=== PATIENT | female | born 2000 | race Caucasian/White ===

== ENCOUNTER 2024-12-15 16:02 | Inpatient (IN) | payer OTHER, SELFPAY ==
[2024-12-15] VITALS (34 sets, daily range): BP systolic 120–158; BP diastolic 68–109; PULSE 76–107; TEMP 36.2–36.8; O2SAT 97–100; BMI 43.7
--- OUTSIDE RECORDS SUMMARY | 2024-12-15 16:30 | XMS_ITS | Clinical Summary ---
Author Organization [facility] [employer] Address [address] [place] [address] Care Team Providers Care Grip Wrapper Name Role Phone Ivy Salas COMMUNITY MENTAL HEALTH WORKER-BILLING SUPERVISOR Primary Care Provider [phone] Source Comments [facility] [employer],non-owned Affiliates and Associated Physician Practices is amultiple site organization consisting of ambulatory clinics and hospital sitesin [place], [place], [place] and [place]. This disclosure is being madepursuant to the Care Everywhere program and may not contain all information available regarding this patient. Last updated 18.[facility] [employer] Allergies No known active allergies Medications * Be aware that medications may not be up to date on this document. Alwaysverify current medications with the patient. Medication Sig Dispensed Refills Start Date End Date Status Rtgctnha-IrGui-LT-DHA w/o A ( + DHA PO) Active aspirin (Aspirin) 81 MG chew tablet Take 1 (one) tablet by mouth once daily Active cetirizine (ZyrTEC) 10 MG chew tablet Take 1 (one) tablet by mouth once daily Active Social History Tobacco Use Types Packs/Day Years Used Date Smoking Tobacco: Never Smokeless Tobacco: Never Tobacco Cessation:Counseling Given: Not Answered Alcohol Use Standard Drinks/Week Comments Never 0 (1 standard drink = 0.6 oz pur e alcohol) PHQ-2 Answer Date Recorded Patient Health Questionnaire-2 Score 0 08/22/2024 Estimated Date of Delivery Comme nts Yes 12/16/2024 Sex and Gender Information Value Date Recorded Sex Assigned at Not on file Gender Identity Not on file Sexual Orientation Not on file Last Filed Vital Signs Vital Sign Reading Time Taken Comments Blood Pressure 131/64 08/22/2024 5:09 PM DIRECTOR OF FIRST IMPRESSIONS Pulse 79 08/22/2024 5:09 PM [employer]OR OF [employer]PRESS[employer] Temperature 36.7 C (98 F) 08/22/2024 5:09 PM [employer]OR OF [employer]PRESS[employer] Respiratory Rate 18 08/22/2024 5:09 PM [employer]OR OF [employer]PRESS[employer] Oxygen Saturation 100% 08/22/2024 5:09 PM [employer]OR OF [employer]PRESS[employer] Inhaled Oxygen Concentration - - Weight 108.9 kg (240 lb) 08/22/2024 5:09 PM [employer]PRESS[employer] Height 167.6 cm (5' 6 ) 08/22/2024 5:09 PM [employer]OR OF [employer]PRESS[employer] Body Mass Index 38.74 08/22/2024 5:09 PM DIRECTOR OF FIRST IMPRESS[employer] Plan of Treatment Health Maintenance Due Date Last Done Comments PAP SMEAR 1999 HPV VACCINE (1 - 3-dose series) 2014 CHLAMYDIA/GONORRHEA SCREENING 2015 HEPATITIS C SCREENING 04/14/2017 DTAP/TDAP/TD VACCINES (1 - Tdap) 2018 HEPATITIS B VACCINE (1 of 3 - 19+ 3-dose series) 2018 COVID-19 VACCINE (2 - 2023-2 5 season) 2024 02/28/2021 INFLUENZA VACCINE (#1) 2024 06/25/2019 OB-ONE HOUR GLUCOSE 09/09/2024 OB-TDAP CURRENT 09/16/2024 DEPRESSION SCREENING 09/21/2024 08/22/2024 OB-RHOGAM INJECTION 09/23/2024 OB-GROUP B STREP SCREEN 11/11/2024 ZOSTER VACCINE (1 of 2) 2049 HIV SCREENING Completed 06/10/2024 HIB VACCINE Aged Out No longer eligi ble based on patient's age to complete this topic MENINGOCOCCAL (Group B) VACC INE SHARED DECISION-MAKING Aged Out No longer eligibl e based on patient's age to complete this topic MENINGOCOCCAL GROUPS A/C/Y/W VACCINE Aged Out No longer eligible b ased on patient's age to complete this topic PNEUMOCOCCAL VACCINE Aged Out No long er eligible based on patient's age to complete this topic Respiratory Syncytial Virus (RSV) Vaccine Pt: or over 60 yrs (No Doses Required) Completed Care Teams Grip Wrapper Relationship Specialty Start Date End Date Ivy Salas, COMMUNITY MENTAL HEALTH WORKER-BILLING SUPERVISOR [address] [place] [phone] PCP - General Nurse Practitioner 08/22/24
--- OUTSIDE RECORDS SUMMARY | 2024-12-15 16:30 | XMS_ITS | Continuity of Care Document ---
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 Plan of Treatment Reminders Order Date Submit Date Provider Last Modified By Organization Details Last Modified Time Details Appointments INDUCTION 2024 04:00P M Lori Hogan CNM Not available Not available Not available Lab None recorded. Referral None recorded. Procedures None recorded. Surgeries None recorded. Imaging US, obstetric , biophysic al profile + non-stres s test 2024 025 [email or web address] [place], [address], [place], [address], 12/14/2024 19:02:19 Medication Orders None recorded. Patient TargetsNo targets recorded. Patient InstructionsNo instructions recorded. Reason for Referral None Reported. Results Created Date Observation Date Name Description Value Unit Range Abnormal Flag Note LastModifiedBy Organization Detail LastModifiedTime 07/27/20 24 07/27/2024 US, obste tric, 2nd or 3rd trime ster No observ ation record ed. [email or web address] [place] [address], [place], [address], 07/27/2024 17:45:29 07/27/20 24 07/27/2024 US, obste tric, 2nd or 3rd trime ster No observ ation record ed. [email or web address] [address], [place], [address], 07/27/2024 21:33:42 10/12/19 25 10/12/2024 US, obste tric, follo w-up No observ ation record ed. [email or web address] [place] [address], [place], [address], 10/12/2024 13:51:30 10/12/19 25 10/12/2024 US, obste tric, follo w-up No observ ation record ed. [email or web address] [address], [place], [address], 10/13/2024 18:35:26 11/11/19 25 11/11/2024 US, obste tric, follo w-up No observ ation record ed. [address], [place], [address], 11/15/2024 23:11:50 11/11/19 25 11/11/2024 US, obste tric, follo w-up No observ ation record ed. [email or web address] [address], [place], [address], 11/11/2024 17:56:31 11/24/19 25 11/23/2024 US, obste tric, bioph ysica l profi le + non-s tress test No observ ation record ed. [email or web address] [place] [address], [place], [address], 11/23/2024 18:47:09 11/24/19 25 11/23/2024 US, obste tric, bioph ysica l profi le + non-s tress test No observ ation record ed. [email or web address] [address], [place], [address], 11/23/2024 20:42:37 11/25/19 25 11/24/2024 non-s tress test No observ ation record ed. [email or web address] [place] [address], [place], [address], 11/24/2024 09:51:27 12/01/19 25 11/30/2024 non-s tress test No observ ation record ed. [email or web address] [place] [address], [place], [address], 11/30/2024 17:15:41 12/01/19 25 11/30/2024 US, obste tric, bioph ysica l profi le + non-s tress test No observ ation record ed. [email or web address] [place] [address], [place], [address], 11/30/2024 17:58:51 12/01/19 25 11/30/2024 US, obste tric, bioph ysica l profi le + non-s tress test No observ ation record ed. [email or web address] [address], [place], [address], 11/30/2024 18:36:20 12/03/19 US, obste tric, bioph ysica l profi le + non-s tress test No observ ation record ed. [email or web address] [place] [address], [place], [address], 12/02/2024 16:53:35 12/08/19 25 12/07/2024 US, obste tric, follo w-up No observ ation record ed. [email or web address] [address], [place], [address], 12/09/2024 16:58:31 12/08/19 25 12/08/2024 US, obste tric, follo w-up No observ ation record ed. [email or web address] [place] [address], [place], [address], 12/08/2024 13:56:01 12/08/19 25 12/08/2024 US, obste tric, bioph ysica l profi le + non-s tress test No observ ation record ed. [email or web address] [place] [address], [place], [address], 12/08/2024 13:56:13 12/08/19 25 12/07/2024 non-s tress test No observ ation record ed. [email or web address] [place] [address], [place], [address], 12/07/2024 20:10:22 12/08/19 25 12/07/2024 non-s tress test No observ ation record ed. [email or web address] [place] [address], [place], [address], 12/07/2024 20:12:09 12/15/19 25 12/14/2024 US, obste tric, bioph ysica l profi le + non-s tress test No observ ation record ed. [email or web address] [place] [address], [place], [address], 12/14/2024 18:23:21 12/15/19 25 12/14/2024 US, obste tric, follo w-up No observ ation record ed. [email or web address] [address] [facility], [place], [address], 12/15/2024 16:09:35 12/15/19 25 12/14/2024 non-s tress test No observ ation record ed. [email or web address] [place] [address], [place], [address], 12/14/2024 19:28:04 12/15/19 non-s tress test No observ ation record ed. [email or web address] [place] [address], [place], [address], 12/14/2024 19:30:58 Result Notes None recorded. Problems Name Problem SNOMED Code Status Onset Date Resolution Date Notes Provider Name and Address Organization Details Recorded Time 62230845 Active 2023 Isabella West null, [facility] 4 17:02:18 Obesity 926130050 Active BMI 39- plan testing start Troy Hogan CNM [address], [place], [address], [facility] 4 17:11:03 Cystic fibrosis 484207093 Active + Carrier - Low risk to fetus Sheila Alex [facility], [facility] 4 16:57:53 Cystic fibrosis 044938162 Active + Carrier - Low risk to fetus Sheila Alex null, [facility] 4 16:57:53 Problem Notes None recorded. Procedures Surgical History Date Name Laterality Status Provider Name and Address Organization Details Recorded Time 05/11/20 24 Date of Last Pap Smear completed Isabella West [facility] 06/10/2024 14:48:49 12/17/19 24 IUD Removal completed NELY Cadet [address], [place], [address], [facility] 12/17/2023 17:32:17 12/12/19 22 IUD Insertion completed Lori Hogan CNM [address], [place], [address], [facility] 12/11/2021 18:48:33 09/21/19 17 extraction of wisdom tooth completed Isabella West [facility] 12/09/2021 14:25:26 Imaging Results Imaging Date Name Status LastModified by Organiz ation Details LastModified Time 12/14/2024 US, obstetric, biophysical profile + non-stress test completed [email or web address] [place] [address], [place], [address], 12/14/2024 18:23:21 Procedure Notes None recorded. Medical Equipment None Reported. Allergies No known drug allergies Medications Name Sig Start Date Stop Date Status Note LastModified by Organization Details LastModified Time amoxicill in 500 mg capsule TAKE 1 CAPSULE BY MOUTH 3 TIMES A DAY UNTIL GONE 12/11 completed Not Available Not Available Not Available Mirena 21 mcg/24 hr (up to 8 years) 52 mg intrauter ine device Take 1 device by intraute rine route. 12/16 completed MIRENA IUD INSERTED 2 AND NEEDS REMOVED 9 LOT [id number] EXP 12/2023 Not Available Not Available Not Available ibuprofen 800 mg tablet TAKE 1 TABLET BY MOUTH EVERY 6 HOURS NEEDED FOR PAIN 12/11 completed Not Available Not Available Not Available meloxicam 15 mg tablet TAKE 1 TABLET (15 MG TOTAL) BY MOUTH DAILY. 06/10 completed Not Available Not Available Not Available Zyrtec 10 mg tablet 1 tablet every day by oral route. active Not Available Not Available No t Available acetamino phen 300 mg-codein e 30 mg tablet TAKE 1 TABLET BY MOUTH EVERY 6 HOURS NEEDED FOR PAIN 12/11 completed Not Available Not Available Not Available fexofenad ine 180 mg tablet TAKE 1 TABLET (180 MG TOTAL) BY MOUTH DAILY NEEDED (ALLERGI ES) 01/20 completed Not Available Not Available Not Available montel[address] st 10 mg tablet TAKE 1 TABLET BY MOUTH EVERY DAY AT NIGHT 01/20 completed Not Available Not Available Not Available fluticaso ne propionat e 50 mcg/actua tion nasal spray,ebenezer pension SPRAYS 2 SPRAY IN EACH NOSTRIL ONCE A DAY 01/20 completed Not Available Not Available Not Available Vitamin D3 25 mcg (1,000 unit) capsule 2 capsules every day by oral route. active Not Available Not Available No t Available norgestim ate-ethin yl estradiol 12/11 completed Not Available Not Available Not Available Vitamin 06/10 completed Not Available Not Available Not Available + DHA active Not Available Not Available Not Available Tri Femynor (28) 0.18 mg(7)/0.2 15 mg(7)/0.2 5 mg(7)-35 mcg tablet TAKE 1 TABLET BY MOUTH EVERY DAY 12/11 completed Not Available Not Available Not Available Vitals Date Recorded Body weight Body mass index (BMI) Body height Body height Body mass index (BMI) Body weight Systolic blood pressure Diastolic blood pressure Systolic blood pressure Diastolic blood pressure Provider Name and Address Organization Details Last Updated DateTime 5 089218. 69494 g 44.8 kg/m2 165.1 cm 165.1 cm 44.8 kg/m2 733403. 35 g 140 mm[Hg] 89 mm[Hg] 140 mm[Hg] 89 mm[Hg] Isabella West [facility] 5 19:22:36 Social History Question Answer Notes LastModified by Organizat ion Details LastModified Time Tobacco Smoking Status Never Smoker Deepak schwartz, [facility] 01/20/2022 17:23:59 Do You Have An Advance Directive? No [email or web address] Information n ot available 12/04/2021 What Is Your Level Of Alcohol Consumption? None [email or web address] Information not available 05/11/2024 If You Are , What Was Your Level Of Alcohol Consumption Prior To ? Occasional [email or web address] Information not available 05/11/2024 How Many Years Have You Consumed Alcohol? 1 Information not available 12/17/2023 Are You Blind Or Do You Have Difficulty Seeing? No [email or web address] Information n ot available 12/04/2021 What Is Your Level Of Caffeine Consumption? Moderate Information not available 12/17/2023 How Much Tobacco Do You Chew? None [email or web address] Information not available 12/04/2021 In The 14 Days Before Symptom Onset, Have You Had Close Contact With A Laboratory-confirm ed COVID-19 While That Case Was Ill? No [email or web address] Information n ot available 12/04/2021 In The 14 Days Before Symptom Onset, Have You Had Close Contact With A Person Who Is Under Investigation For COVID-19 While That Person Was Ill? No [email or web address] Information not available 12/04/2021 Have You Been To An Area Known To Be High Risk For COVID-19? No [email or web address] Information not available 12/04/2021 Are You Deaf Or Do You Have Serious Difficulty Hearing? No [email or web address] Information not available 12/04/2021 What Type Of Diet Are You Following? REGULAR [email or web address] Information n ot available 12/04/2021 What Is The Highest Grade Or Level Of School You Have Completed Or The Highest Degree You Have Received? 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 No Information not available 12/17/2023 Have You Ever Been Counseled For Unhealthy Alcohol Use? No Information not available 01/20/2022 Do You Use Protection During Sex? No Information not available 12/04/2021 Do You Use Your Seat Belt Or Car Seat Routinely? Yes [email or web address] Information not available 12/04/2021 Do You Have Smoke And Carbon Monoxide Detectors In Your Home? Yes [email or web address] Information not available 12/04/2021 How Much Tobacco Do You Smoke? No [email or web address] Information not available 12/04/2021 Do You Feel Stressed (tense, Restless, Nervous, Or Anxious, Or Unable To Sleep At Night)? [id number] [email or web address] Information not available 12/04/2021 Do You Use Any Illicit Or Recreational Drugs? No [email or web address] Information not available 12/04/2021 Do You Use Sunscreen Routinely? Yes [email or web address] Information not available 12/04/2021 Has Tobacco Cessation Counseling Been Provided? No [email or web address] Information not available 01/20/2022 Have You Used IV Drugs? No [email or web address] Information not available 12/04/2021 Do You Or Have You Ever Used Any Other Forms Of Tobacco Or Nicotine? No [email or web address] Information not available 01/20/2022 Sex: Unknown Functional Status Question Answer Note LastModified by Organizat ion Details LastModified Time Do you have difficulty walking or climbing stairs? No Information not available 01/20/2022 Are you able to walk? YESWOREST [email or web address] Information not available 12/04/2021 Are you able to care for yourself? Yes Information not available 01/20/2022 Do you have difficulty dressing or bathing? No Information not available 01/20/2022 What is your exercise level? Occasional Information not available 12/17/2023 Mental Status None recorded. Family History Relationship Description Onset Age of this Age Resolved Age Notes LastModified by Organization Details LastModified Time Maternal Grandmother Hypertensive disorder [email or web address] Not available 12/04 18:21:26 Maternal Grandmother Diabetes mellitus [email or web address] Not available 12/04 18:21:26 Maternal Grandmother Malignant tumor of ovary 20 [email or web address] Not available 2023 16:41:30 Maternal Grandmother Malignant tumor of ovary Not available 2023 16:53:09 Mother Hypertensive disorder Not available 12/04 18:21:26 Brother Asthma [email or web address] Not availabl e 12/04/2021 18:21:26 Maternal Aunt Hypertensive disorder [email or web address] Not available 2021 17:56:25 Maternal Uncle Hypertensive disorder [email or web address] Not available 2021 17:56:26 Unspecified Relation Diabetes mellitus MATERN AL GREAT GRANDM A [email or web address] Not available 12/11/2021 17:56:26 Paternal Uncle Malignant tumor of pancreas 40 [email or web address] Not available 2024 14:23:32 Medical History Condition Response Allergies (Food, seasonal, environmental ) Y Other N Breast Cancer N Drug/Latex Allergies/Reactions N Blood Transfusion N Dermatologic Disorders N Lung Disease N Defects or Inherited Disease N Breast Problem N Gestational Diabetes N Hematologic disorders N Anesthesia Complications N History of STI N Deep Vein Thrombosis N Polycystic ovary syndrome N Anxiety Disorder N Autoimmune disease N Arthritis N Infertility N Polyps N Acid Reflux (GERD) N History of abnormal pap N Cancer N Stroke N Varicosities N Neurologic/Epilepsy N Endometriosis N High Cholesterol N Headaches N Fibromyalgia N Kidney Disease N Heart Problems N Kidney or Bladder Problems N Thyroid Problems N GI Problems Y Eating Disorder N Anemia N Art (IVF or FET) N Psychiatric Illness N Ovarian Cancer N Diabetes N Pulmonary (TB, Asthma) N Hepatitis/Liver Disease N No Past Medical History N Eczema N Urinary Tract Infection N Abuse/Domestic Violence N Asthma Y Trauma/Violence N Depression/ depression N Heart Disease N Pre-Eclampsia N Hypertension N Osteoporosis N Thrombophilias N Gynecological History Statement/Question Response Abnormal Pap N Date of Last Mammogram Date of LMP 03/11/2024 On BCP's at Conception? N N Was last menstrual period normal Y STIs/STDs N HPV Vaccine Y Duration of Flow (days) 1 Current Control Method Frequency of Cycle (Q days) 21 Most Recent Bone Density Sexually Active? Y Seeking Age of first menstrual cycle 10 Date of Last Pap Smear 05/11/2024 Sexual Problems? N LMP Approximate N Obstetrics History GPAL:G 1 P 0 0 0 0 Type Value Living 0 Total 1 Past Encounters Encounter ID Performer Location Encounter Start Date Encounter Closed Date Diagnosis/Indication Diagnosis SNOMED-CT Code Diagnosis ICD10 Code Diagnosis Note [id number] Lori Hogan [facility] [address] [address] 11/16/2024 17:28:33 11/17/2024 04:35:14 screening 849884027 Z36.85 Gestation period, 35 weeks 49559926 Z3A.35 [id number] Naila Juarez [place] [address],[place] [address] 11/23/2024 15:54:02 11/23/2024 16:33:33 Maternal obesity complicating , childbirth and the puerperium, antepartum 6150959282 07 O99.213 Z3A.36 [id number] Loren Rivera [place] [address] [place] [address] 11/23/2024 15:54:37 11/24/2024 11:16:36 Maternal obesity complicating , childbirth and the puerperium, antepartum 9037382656 07 O99.213 Z3A.36 [id number] [facility] [address] [place] [address] 11/23/2024 15:55:14 11/23/2024 17:36:49 Gestation period, 36 weeks 53926428 Z3A.36 [id number] Keira Davies [place] [address],[place] [address] 11/30/2024 16:24:27 11/30/2024 17:19:10 06000900 Z33.1 Maternal o besity complicating , childbirth and the puerperium, antepartum 1021440063 07 O99.210 [id number] [facility] [address],[place] [address] 11/30/2024 16:24:49 11/30/2024 17:26:02 Maternal obesity complicating , childbirth and the puerperium, antepartum 8546986028 07 O99.213 Z3A.37 [id number] Lori Hogan [facility] [address],[place] [address] 11/30/2024 16:25:23 11/30/2024 17:48:29 Gestation period, 37 weeks 64744796 Z3A.37 [id number] [facility] [address],[place] [address] 12/07/2024 17:04:19 12/08/2024 10:03:10 Maternal obesity complicating , childbirth and the puerperium, antepartum 2800808573 07 O99.213 Z86.16 [id number] Isabella West [place] [address] [address] 12/07/2024 17:04:34 12/08/2024 08:27:45 Maternal obesity complicating , childbirth and the puerperium, antepartum 8534062908 07 O99.210 [id number] Lori Hogan [facility] [address],[place] [address] 12/07/2024 17:05:53 12/08/2024 03:57:01 Gestation period, 38 weeks 21052215 Z3A.38 [id number] [facility] [address],[place] [address] 12/14/2024 16:33:00 12/14/2024 17:02:46 Maternal obesity complicating , childbirth and the puerperium, antepartum 2846242562 07 O99.213 Z3A.39 [id number] Isabella West [place] [address],[place] [address] 12/14/2024 16:33:24 12/15/2024 13:13:18 Maternal obesity complicating , childbirth and the puerperium, antepartum 8095884710 07 O99.210 [id number] [facility] [address],[place] [address] 12/14/2024 16:33:36 12/15/2024 03:27:29 Gestation period, 39 weeks 63659836 Z3A.39 Health Concerns Section Related Observation LastModified by Organization Detai ls LastModified Time None Recorded Concern Status LastModified by Organization Details LastModified Time None Recorded Payers Encounter Date Sequence Insurance Name Policy Number Policy Wilson Covered Member ID Wilson Member ID Guarantor Name 12/14/2024 2 [facility] [id number] Gurmeet Ortega [id number] Mary Garnica 12/14/2024 1 [facility] [id number] Mary Garnica [id number] Mary Garnica OBGyn Episode Ob Episode Information Episode Created Date Number of Fetuses Patient Bloodtype Patient rh Status Prepregnancy Weight lbs Domestic Partner Domestic Partner Phone Father Name Supervisor Travel Trailer Status 06/10/20 24 1 A Positive 236 OPEN Fetus Data First Name Last Name Admitted to NICU Weight (g) Sex Living Outcome Pediatric Complications Fetus ID Race Codes Race Delivery Type [id number] Problems Problem Notes Problem Name Start Date End Date Resolution Snomed Code Not e Cystic fibrosis 252755403 + Ca rrier - Low risk to fetus Obesity 583415719 BMI 39- pl an testingstart bASA Bimal Calculation Initial Bimal Date Initial Exam Date Initial Exam Provider Initial Ultrasound Date Last Menstrual Period Date Ultra Sound Weeks Gestation 12/16/2024 05/11/2024 Lori Hogan 05/11/2024 03/11/2024 9 Eighteen To Twenty Week Bimal Update Ultra Sound Date Fundal Height At Umbil Quickening Date Ultra Sound Latest Weeks Gestation Final Bimal Confirmed By Final Bimal Confirmed Date Final Bimal Date Ultra Sound Latest Days Gestation 0 0 Pre- Flowsheet Flowsheet Date 06/10/2024 Martini Score Blood Edema Fundus Height Fundus Units Glucose Ketones Leukocytes Nitrite Labor Signs Protein Cervic Dilation Cervic Effacement Cervic Station Type Weight in lbs Pre/Post Dialysis Refused Weight 237.2660677847 BP Diastolic BP Location Tested BP Systolic BP Type 96 161 82 131 Fetus Heart Rate Present Fetus Movement Comments discussed bp a little high, first baby will plan daily bASA. start routine care, labs today and reviewed us wnl Flowsheet Date 07/08/2024 Martini Score Blood Edema Fundus Height Fundus Units Glucose Ketones Leukocytes Nitrite Labor Signs Protein Cervic Dilation Cervic Effacement Cervic Station none Type Weight in lbs Pre/Post Dialysis Refused 236.643430218073 BP Diastolic BP Location Tested BP Systolic BP Type 84 142 Fetus Heart Rate Present Fetus Movement A Yes Comments +FM, has anatomy scan in 3 w eeks, some nausea, samson resolved, reviewed vaccines, education and precautions Flowsheet Date 07/27/2024 Martini Score Blood Edema Fundus Height Fundus Units Glucose Ketones Leukocytes Nitrite Labor Signs Protein Cervic Dilation Cervic Effacement Cervic Station Type Weight in lbs Pre/Post Dialysis Refused BP Diastolic BP Location Tested BP Systolic BP Type Fetus Heart Rate Present Fetus Movement Comments Flowsheet Date 07/27/2024 Martini Score Blood Edema Fundus Height Fundus Units Glucose Ketones Leukocytes Nitrite Labor Signs Protein Cervic Dilation Cervic Effacement Cervic Station Type Weight in lbs Pre/Post Dialysis Refused 239.150655028861 BP Diastolic BP Location Tested BP Systolic BP Type 83 129 Fetus Heart Rate Present Fetus Movement A Yes Comments Patient is having some cramp ing, nausea and vomiting. anatomy complete doing well ok for tdap and flu f/u 4 weeks, precautions and education Flowsheet Date 08/24/2024 Martini Score Blood Edema Fundus Height Fundus Units Glucose Ketones Leukocytes Nitrite Labor Signs Protein Cervic Dilation Cervic Effacement Cervic Station none Type Weight in lbs Pre/Post Dialysis Refused 244.159252272526 BP Diastolic BP Location Tested BP Systolic BP Type 83 133 Fetus Heart Rate Present Fetus Movement A Yes Comments Patient had bladder pain on thursday and was tested for UTI and was negative. sxs resolved after baby repositioned. +FM doing well, Education and precautions f/u4 weeks with gct Flowsheet Date 09/28/2024 Martini Score Blood Edema Fundus Height Fundus Units Glucose Ketones Leukocytes Nitrite Labor Signs Protein Cervic Dilation Cervic Effacement Cervic Station none Type Weight in lbs Pre/Post Dialysis Refused 250.627760131353 BP Diastolic BP Location Tested BP Systolic BP Type 84 131 Fetus Heart Rate Present A 145 Present Fetus Movement A Yes Comments Patient states that had covi d couple weeks ago. start bASA q 4 week US, gct today +FM, f/u 4 weeks with us Flowsheet Date 10/12/2024 Martini Score Blood Edema Fundus Height Fundus Units Glucose Ketones Leukocytes Nitrite Labor Signs Protein Cervic Dilation Cervic Effacement Cervic Station Type Weight in lbs Pre/Post Dialysis Refused BP Diastolic BP Location Tested BP Systolic BP Type Fetus Heart Rate Present Fetus Movement Comments Flowsheet Date 10/12/2024 Martini Score Blood Edema Fundus Height Fundus Units Glucose Ketones Leukocytes Nitrite Labor Signs Protein Cervic Dilation Cervic Effacement Cervic Station neg none Type Weight in lbs Pre/Post Dialysis Refused 252.384348711868 BP Diastolic BP Location Tested BP Systolic BP Type 86 133 Fetus Heart Rate Present Fetus Movement A Yes Comments Patient is having back and h ip pain, nausea and vomiting. will get maternity support belt, +FM, efw 45%, precautions and education, looking for a it associate, signed up for class f/u 2 weeks Flowsheet Date 10/28/2024 Martini Score Blood Edema Fundus Height Fundus Units Glucose Ketones Leukocytes Nitrite Labor Signs Protein Cervic Dilation Cervic Effacement Cervic Station neg none 35 cm Type Weight in lbs Pre/Post Dialysis Refused Weight 258.074130768862 BP Diastolic BP Location Tested BP Systolic BP Type 80 125 Fetus Heart Rate Present A 147 Present Fetus Movement A Yes Comments Patient is having some cramp ing, nausea and vomiting. precautions and education, flu and covid vaccine done, +FM f/u 2 weeks, baby shower last weekend! Flowsheet Date 11/11/2024 Martini Score Blood Edema Fundus Height Fundus Units Glucose Ketones Leukocytes Nitrite Labor Signs Protein Cervic Dilation Cervic Effacement Cervic Station Type Weight in lbs Pre/Post Dialysis Refused BP Diastolic BP Location Tested BP Systolic BP Type Fetus Heart Rate Present Fetus Movement Comments Flowsheet Date 11/11/2024 Martini Score Blood Edema Fundus Height Fundus Units Glucose Ketones Leukocytes Nitrite Labor Signs Protein Cervic Dilation Cervic Effacement Cervic Station neg none Type Weight in lbs Pre/Post Dialysis Refused [id number] BP Diastolic BP Location Tested BP Systolic BP Type 81 116 Fetus Heart Rate Present Fetus Movement A Yes Comments Patient is having some contr actions, nausea and vomiting. efw 63%, vertex, +FM, education and percautions f/u one week with gbs. start testing next week Flowsheet Date 11/16/2024 Martini Score Blood Edema Fundus Height Fundus Units Glucose Ketones Leukocytes Nitrite Labor Signs Protein Cervic Dilation Cervic Effacement Cervic Station neg none 37 cm Type Weight in lbs Pre/Post Dialysis Refused Weight [id number] BP Diastolic BP Location Tested BP Systolic BP Type 87 133 Fetus Heart Rate Present A 144 Fetus Movement A Yes Comments Patient is having pressure, nausea and vomiting. education and precautions, testing next week, gbs collected, +FM f/u 1 week Flowsheet Date 11/23/2024 Martini Score Blood Edema Fundus Height Fundus Units Glucose Ketones Leukocytes Nitrite Labor Signs Protein Cervic Dilation Cervic Effacement Cervic Station Type Weight in lbs Pre/Post Dialysis Refused BP Diastolic BP Location Tested BP Systolic BP Type Fetus Heart Rate Present Fetus Movement Comments Flowsheet Date 11/23/2024 Martini Score Blood Edema Fundus Height Fundus Units Glucose Ketones Leukocytes Nitrite Labor Signs Protein Cervic Dilation Cervic Effacement Cervic Station Type Weight in lbs Pre/Post Dialysis Refused BP Diastolic BP Location Tested BP Systolic BP Type Fetus Heart Rate Present Fetus Movement Comments Flowsheet Date 11/23/2024 Martini Score Blood Edema Fundus Height Fundus Units Glucose Ketones Leukocytes Nitrite Labor Signs Protein Cervic Dilation Cervic Effacement Cervic Station trace 1cm 30% -3 Type Weight in lbs Pre/Post Dialysis Refused [id number] BP Diastolic BP Location Tested BP Systolic BP Type 84 126 Fetus Heart Rate Present Fetus Movement A Yes Comments patient states that having n umbness and tingling in hands, BH contractions, discharge and swelling. ice and braces ok considering iol, +FM precautions and education bpp 10/10 Flowsheet Date 11/30/2024 Martini Score Blood Edema Fundus Height Fundus Units Glucose Ketones Leukocytes Nitrite Labor Signs Protein Cervic Dilation Cervic Effacement Cervic Station Type Weight in lbs Pre/Post Dialysis Refused Weight 269.490773973330 BP Diastolic BP Location Tested BP Systolic BP Type 86 126 sitting Fetus Heart Rate Present Fetus Movement Comments Flowsheet Date 11/30/2024 Martini Score Blood Edema Fundus Height Fundus Units Glucose Ketones Leukocytes Nitrite Labor Signs Protein Cervic Dilation Cervic Effacement Cervic Station Type Weight in lbs Pre/Post Dialysis Refused BP Diastolic BP Location Tested BP Systolic BP Type Fetus Heart Rate Present Fetus Movement Comments Flowsheet Date 11/30/2024 Martini Score Blood Edema Fundus Height Fundus Units Glucose Ketones Leukocytes Nitrite Labor Signs Protein Cervic Dilation Cervic Effacement Cervic Station neg none Type Weight in lbs Pre/Post Dialysis Refused 269.698412651468 BP Diastolic BP Location Tested BP Systolic BP Type 86 126 Fetus Heart Rate Present Fetus Movement A Yes Comments Patient is having some BH co ntractions and discharge. bpp 8/8 +FM doing well, cervix 1/50/-3 soft mid position f/u one week Flowsheet Date 12/07/2024 Martini Score Blood Edema Fundus Height Fundus Units Glucose Ketones Leukocytes Nitrite Labor Signs Protein Cervic Dilation Cervic Effacement Cervic Station Type Weight in lbs Pre/Post Dialysis Refused Weight 270.575518112073 BP Diastolic BP Location Tested BP Systolic BP Type 87 128 Fetus Heart Rate Present Fetus Movement Comments Flowsheet Date 12/07/2024 Martini Score Blood Edema Fundus Height Fundus Units Glucose Ketones Leukocytes Nitrite Labor Signs Protein Cervic Dilation Cervic Effacement Cervic Station Type Weight in lbs Pre/Post Dialysis Refused BP Diastolic BP Location Tested BP Systolic BP Type Fetus Heart Rate Present Fetus Movement Comments Flowsheet Date 12/07/2024 Martini Score Blood Edema Fundus Height Fundus Units Glucose Ketones Leukocytes Nitrite Labor Signs Protein Cervic Dilation Cervic Effacement Cervic Station neg none 1cm 50% Type Weight in lbs Pre/Post Dialysis Refused [phone] BP Diastolic BP Location Tested BP Systolic BP Type 87 128 Fetus Heart Rate Present Fetus Movement A Yes Comments Patient is having BH contrac tions, discharge, nausea and vomiting. reviewed US, EFW, discussed IOL, pt to call tomorrow, +FM, bpp 8/8, precautions and eduction f/u 1 week Flowsheet Date 12/14/2024 Martini Score Blood Edema Fundus Height Fundus Units Glucose Ketones Leukocytes Nitrite Labor Signs Protein Cervic Dilation Cervic Effacement Cervic Station Type Weight in lbs Pre/Post Dialysis Refused BP Diastolic BP Location Tested BP Systolic BP Type Fetus Heart Rate Present Fetus Movement Comments Flowsheet Date 12/14/2024 Martini Score Blood Edema Fundus Height Fundus Units Glucose Ketones Leukocytes Nitrite Labor Signs Protein Cervic Dilation Cervic Effacement Cervic Station Type Weight in lbs Pre/Post Dialysis Refused Weight [id number] BP Diastolic BP Location Tested BP Systolic BP Type 89 140 Fetus Heart Rate Present Fetus Movement Comments Flowsheet Date 12/14/2024 Martini Score Blood Edema Fundus Height Fundus Units Glucose Ketones Leukocytes Nitrite Labor Signs Protein Cervic Dilation Cervic Effacement Cervic Station neg trace Type Weight in lbs Pre/Post Dialysis Refused 269.722032864667 BP Diastolic BP Location Tested BP Systolic BP Type 89 140 Fetus Heart Rate Present Fetus Movement A Yes Comments Patient states that is havin g discharge and swelling. IOL tomorrow evening, bpp 8/8 +FM cervix unchanged , precautions and education reviewed Flowsheet Date 12/15/2024 Martini Score Blood Edema Fundus Height Fundus Units Glucose Ketones Leukocytes Nitrite Labor Signs Protein Cervic Dilation Cervic Effacement Cervic Station Type Weight in lbs Pre/Post Dialysis Refused BP Diastolic BP Location Tested BP Systolic BP Type Fetus Heart Rate Present Fetus Movement Comments Menstrual History Last Menstrual Date Menses Monthly On Bcp Conception Prior Menses Frequency Hcg Plus Date Menarche Onset Age 0603/11/[birth year]24 Delivery Information Delivery Date Delivery Type Labor Anesthesia Weeks Gestation Incision Type Labor Labor Length Hrs Delivered By Post Complications Tubal Sterilization Discharge Date Comments Discharge Information Feeding Method Contraceptive Method Maternal HG B and HCT Levels
--- OUTSIDE RECORDS SUMMARY | 2024-12-15 16:30 | XMS_ITS | Data Portability ---
Author Organization [facility] Address [address] [place] [address] [place] [address] Care Team Providers Care Complex Manager Name Role Phone KAMLESH ORNELAS Primary Care Provider Assessment Encounter Date Assessment Date Assessment LastModified by Organization Details LastModified Time 12/14/2024 12/14/2024 Patient is ___weeks . Discussed plan. [email or web address] Not available 12/14/2024 17:33:18 Plan of Treatment Reminders Order Date Submit Date Provider Last Modified By Organization Details Last Modified Time Details Appointments INDUCTION 2024 04:00P M Lori Hogan CNM Not available Not available Not available Lab None recorded. Referral None recorded. Procedures None recorded. Surgeries None recorded. Imaging non-stres s test 2024 025 [facility] [address] [place], [address], [place], [address], 12/15/2024 13:13:18 US, obstetric , biophysic al profile + non-stres s test 2024 025 [email or web address] [place], [address], [place], [address], 12/14/2024 19:02:19 non-stres s test 2024 025 [facility] [address] [place], [address], [place], [address], 12/08/2024 08:27:45 Medication Orders None recorded. Patient TargetsNo targets recorded. Patient InstructionsNo instructions recorded. Reason for Referral None Reported. Results Created Date Observation Date Name Description Value Unit Range Abnormal Flag Note LastModifiedBy Organization Detail LastModifiedTime 11/16/1911/16/2024 CULTU RE: GROUP B STREP SCREE N, REFLE X SUSCE PTIBI LITY result report SEE RESULT S BELOW Test: Cultu re: Group B Strep , Refle x Susce ptibi lity ([facility]/ [facility]/K H/[facility] ) Speci men Sourc e: Vagin a/Rec keith Speci men Type: Vagin al/Re ctal Speci men Date: 2024 1657 Resul t Date: 025 1400 Resul t Statu s: Final resul t Abnor mal: No Resul ting Lab: [facility] [address] [facility] [address] Tel: CULTU RE ----- ----- ----- --- No Group B strep isola damaris at 2 days (shayne ctive broth enhan cemen t) Not Available [facility] (Lab) [address] [facility], [place], [address], 11/19/2024 15:02:39 11/11/19 25 11/11/2024 US, obste tric, follo w-up No observ ation record ed. [email or web address] [address] [facility], [place], [address], 11/15/2024 23:11:50 11/11/19 25 11/11/2024 US, obste tric, follo w-up No observ ation record ed. [email or web address] [place] [address], [place], [address], 11/11/2024 17:56:31 11/24/19 25 11/23/2024 US, obstkerry tric, bioph ysica l profi le + non-s tress test No observ ation record ed. [email or web address] [place] [address], [place], [address], 11/23/2024 18:47:09 11/24/19 25 11/23/2024 US, obste tric, bioph ysica l profi le + non-s tress test No observ ation record ed. [email or web address] [address], [place], [address], 11/23/2024 20:42:37 11/25/19 25 11/24/2024 non-s tress test No observ ation record ed. [place] [address], [place], [address], 11/24/2024 09:51:27 12/01/19 25 11/30/2024 non-s tress test No observ ation record ed. [email or web address] [place] [address], [place], [address], 11/30/2024 17:15:41 12/01/19 25 11/30/2024 US, obste tric, bioph ysica l profi le + non-s tress test No observ ation record ed. [email or web address] [place] [address], [place], [address], 11/30/2024 17:58:51 12/01/19 25 11/30/2024 US, obste tric, bioph ysica l profi le + non-s tress test No observ ation record ed. [email or web address] [address], [place], [address], 11/30/2024 18:36:20 12/03/19 US, obste tric, bioph ysica l profi le + non-s tress test No observ ation record ed. [email or web address] [place] [address], [place], [address], 12/02/2024 16:53:35 12/08/19 25 12/07/2024 US, obste tric, follo w-up No observ ation record ed. [email or web address] [address], [place], [address], 12/09/2024 16:58:31 12/08/19 25 12/08/2024 US, obste tric, follo w-up No observ ation record ed. [email or web address] [place] [address], [place], [address], 12/08/2024 13:56:01 12/08/19 25 12/08/2024 US, luis alfredo thompson, bioph ysica l profi le + non-s tress test No observ ation record ed. [email or web address] [place] [address], [place], [address], 12/08/2024 13:56:13 12/08/19 25 12/07/2024 non-s tress test No observ ation record ed. [email or web address] [place] [address], [place], [address], 12/07/2024 20:10:22 12/08/19 25 12/07/2024 non-s tress test No observ ation record ed. [email or web address] [place] [address], [place], [address], 12/07/2024 20:12:09 12/15/19 25 12/14/2024 US, obstkerry thompson, bioph ysica l profi le + non-s tress test No observ ation record ed. [email or web address] [place] [address], [place], [address], 12/14/2024 18:23:21 12/15/19 25 12/14/2024 US, obste tric, follo w-up No observ ation record ed. [email or web address] [address], [place], [address], 12/15/2024 16:09:35 12/15/19 25 12/14/2024 non-s tress test No observ ation record ed. [email or web address] [place] [address], [place], [address], 12/14/2024 19:28:04 12/15/19 non-s tress test No observ ation record ed. [email or web address] [place] [address], [place], [address], 12/14/2024 19:30:58 Result Notes None recorded. Problems Name Problem SNOMED Code Status Onset Date Resolution Date Notes Provider Name and Address Organization Details Recorded Time 67658773 Active 2023 Isabella schwartz, [facility] 17:02:18 Obesity 459299442 Active BMI 39- plan testing start Troy Hogan CNM [address], [place], [address], , P.C. 4 17:11:03 Cystic fibrosis 822715067 Active + Carrier - Low risk to fetus Sheila Alex null, [facility] 4 16:57:53 Cystic fibrosis 704146388 Active + Carrier - Low risk to fetus Sheila Alex null, [facility] 4 16:57:53 Problem Notes None recorded. Procedures Surgical History Date Name Laterality Status Provider Name and Address Organization Details Recorded Time 05/11/20 24 Date of Last Pap Smear completed Isabella West [facility] 06/10/2024 14:48:49 12/17/19 24 IUD Removal completed NELY Cadet [address], [place], [address], , P.C. 12/17/2023 17:32:17 12/12/19 22 IUD Insertion completed Lori Hogan CNM [address], [place], [address], [place] [facility] 12/11/2021 18:48:33 09/21/19 17 extraction of wisdom tooth completed Isabella West [facility] 12/09/2021 14:25:26 Imaging Results Imaging Date Name Status LastModified by Organiz ation Details LastModified Time 11/11/2024 US, obstetric, follow-up completed [email or web address] [address], [place], [address], 11/15/2024 23:11:50 11/11/2024 US, obstetric, follow-up completed [email or web address] [place] [address], [place], [address], 11/11/2024 17:56:31 11/23/2024 US, obstetric, biophysical profile + non-stress test completed [email or web address] [place] [address], [place], [address], 11/23/2024 18:47:09 11/23/2024 US, obstetric, biophysical profile + non-stress test completed [email or web address] [address], [place], [address], 11/23/2024 20:42:37 11/24/2024 non-stress test completed [email or web address] [place] [address], [place], [address], 11/24/2024 09:51:27 11/30/2024 non-stress test active [email or web address] [place] [address], [place], [address], 11/30/2024 17:15:41 11/30/2024 US, obstetric, biophysical profile + non-stress test completed [email or web address] [place] [address], [place], [address], 11/30/2024 17:58:51 11/30/2024 US, obstetric, biophysical profile + non-stress test completed [email or web address] [address], [place], [address], 11/30/2024 18:36:20 12/02/2024 US, obstetric, biophysical profile + non-stress test completed [email or web address] [place] [address], [place], [address], 12/02/2024 16:53:35 12/07/2024 US, obstetric, follow-up completed [email or web address] [address], [place], [address], 12/09/2024 16:58:31 12/08/2024 US, obstetric, follow-up completed [email or web address] [place] [address], [place], [address], 12/08/2024 13:56:01 12/08/2024 US, obstetric, biophysical profile + non-stress test completed [email or web address] [place] [address], [place], [address], 12/08/2024 13:56:13 12/07/2024 non-stress test completed [email or web address] [place] [address], [place], [address], 12/07/2024 20:10:22 12/07/2024 non-stress test completed [email or web address] [place] [address], [place], [address], 12/07/2024 20:12:09 12/14/2024 US, obstetric, biophysical profile + non-stress test completed [email or web address] [place] [address], [place], [address], 12/14/2024 18:23:21 12/14/2024 US, obstetric, follow-up completed [email or web address] [address], [place], [address], 12/15/2024 16:09:35 12/14/2024 non-stress test completed [place] [address], [place], [address], 12/14/2024 19:28:04 12/14/2024 non-stress test completed [address], [place], [address], 12/14/2024 19:30:58 Procedure Notes None recorded. Medical Equipment None [...] INSERTED 2 AND NEEDS REMOVED 9 LOT [id number] EXP 12/2023 Not Available Not Available Not [...] Address Organization Details Last Updated DateTime 5 085685. 9399 g 44.9 kg/m2 165.1 cm 165.1 cm 44.9 kg/m2 473794. 94 g 128 mm[Hg] 87 mm[Hg] 128 mm[Hg] 87 mm[Hg] Isabella West [facility] 5 20:09:13 Date Recorded Body weight Body mass index (BMI) Body height Body height Body mass index (BMI) Body weight Systolic blood pressure Diastolic blood pressure Systolic blood pressure Diastolic blood pressure Provider Name and Address Organization Details Last Updated DateTime 5 339415. 18799 g 44.8 kg/m2 165.1 cm 165.1 cm 44.8 kg/m2 972807. 35 g 140 mm[Hg] 89 mm[Hg] 140 mm[Hg] 89 mm[Hg] Isabella West [facility] 5 19:22:36 Social History Question Answer Notes LastModified by Organizat ion Details LastModified Time Tobacco Smoking Status Never Smoker Deepak Bowen [facility], [facility] 01/20/2022 17:23:59 Do You Have An Advance Directive? No [email or web address] Information n ot available 12/04/2021 What Is Your Level Of Alcohol Consumption? None Information not available 05/11/2024 If You Are , What Was Your Level Of Alcohol Consumption Prior To ? Occasional [email or web address] Information not available 05/11/2024 How Many Years Have You Consumed Alcohol? 1 Information not available 12/17/2023 Are You Blind Or Do You Have Difficulty Seeing? No [email or web address] Information n ot available 12/04/2021 What Is Your Level Of Caffeine Consumption? Moderate Information not available 12/17/2023 How Much Tobacco Do You Chew? None [email or web address] Information not available 12/04/2021 In The 14 Days Before Symptom Onset, Have You Had Close Contact With A Laboratory-confirm ed COVID-19 While That Case Was Ill? No [email or web address] Information n ot available 12/04/2021 In The 14 Days Before Symptom Onset, Have You Had Close Contact With A Person Who Is Under Investigation For COVID-19 While That Person Was Ill? No [email or web address] Information not available 12/04/2021 Have You Been To An Area Known To Be High Risk For COVID-19? No [email or web address] Information not available 12/04/2021 Are You Deaf Or Do You Have Serious Difficulty Hearing? No [email or web address] Information not available 12/04/2021 What Type Of Diet Are You Following? REGULAR [email or web address] Information n ot available 12/04/2021 What Is The Highest Grade Or Level Of School You Have Completed Or The Highest Degree You Have Received? 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 No Information not available 12/17/2023 Have You Ever Been Counseled For Unhealthy Alcohol Use? No [email or web address] Information not available 01/20/2022 Do You Use Protection During Sex? No [email or web address] Information not available 12/04/2021 Do You Use Your Seat Belt Or Car Seat Routinely? Yes [email or web address] Information not available 12/04/2021 Do You Have Smoke And Carbon Monoxide Detectors In Your Home? Yes [email or web address] Information not available 12/04/2021 How Much Tobacco Do You Smoke? No [email or web address] Information not available 12/04/2021 Do You Feel Stressed (tense, Restless, Nervous, Or Anxious, Or Unable To Sleep At Night)? [id number] [email or web address] Information not available 12/04/2021 Do You Use Any Illicit Or Recreational Drugs? No [email or web address] Information not available 12/04/2021 Do You Use Sunscreen Routinely? Yes [email or web address] Information not available 12/04/2021 Has Tobacco Cessation Counseling Been Provided? No [email or web address] Information not available 01/20/2022 Have You Used IV Drugs? No [email or web address] Information not available 12/04/2021 Do You Or Have You Ever Used Any Other Forms Of Tobacco Or Nicotine? No Information not available 01/20/2022 Sex: Unknown Functional Status Question Answer Note LastModified by Organizat ion Details LastModified Time Do you have difficulty walking or climbing stairs? No Information not available 01/20/2022 Are you able to walk? YESWOREST [email or web address] Information not available 12/04/2021 Are you able [...] Details LastModified Time Maternal Grandmother Hypertensive disorder [email or web address] Not available 12/04 18:21:26 Maternal Grandmother Diabetes mellitus [email or web address] Not available 12/04 18:21:26 Maternal Grandmother Malignant tumor of ovary 20 Not available 2023 16:41:30 Maternal Grandmother Malignant tumor of ovary Not available 2023 16:53:09 Mother Hypertensive disorder [email or web address] Not available 12/04 18:21:26 Brother Asthma [email or web address] Not availabl e 12/04/2021 18:21:26 Maternal Aunt Hypertensive disorder [email or web address] Not available 2021 17:56:25 Maternal Uncle Hypertensive disorder [email or web address] Not available 2021 17:56:26 Unspecified Relation Diabetes mellitus MATERN AL GREAT GRANDM A [email or web address] Not available 12/11/2021 17:56:26 Paternal Uncle Malignant tumor of pancreas 40 [email or web address] Not available 2024 14:23:32 Medical History Condition Response Allergies (Food, seasonal, environmental ) Y Other N Drug/Latex Allergies/Reactions N Breast Cancer N Blood Transfusion N Dermatologic Disorders N Lung Disease N Defects or Inherited Disease N Breast Problem N Gestational Diabetes N Hematologic disorders N Anesthesia Complications N History of STI N Deep Vein Thrombosis N Polycystic ovary syndrome N Anxiety Disorder N Autoimmune disease N Arthritis N Polyps N Infertility N Acid Reflux (GERD) N History of abnormal pap N Cancer N Varicosities N Stroke N Neurologic/Epilepsy N Endometriosis N High Cholesterol N Fibromyalgia N Headaches N Kidney Disease N Heart Problems N Thyroid Problems N Kidney or Bladder Problems N GI Problems Y Eating Disorder [...] SNOMED-CT Code Diagnosis ICD10 Code Diagnosis Note [id number] JAMEL Ward[address],[place] [address] 12/04/2021 17:34:44 12/05/2021 17:31:37 Gynecologic examination 55179677 Z01.419 [id number] Lori LarsenLeon Hogan [place] [address],[place] [address] 12/11/2021 17:56:11 12/11/2021 18:56:27 Insertion of intrauterine contraceptive device 12167449 Z30.430 36132 Magalis Diallo [place] [address],[place] [address] 01/20/2022 17:22:01 01/20/2022 18:16:21 IUD check 253476350 Z30.431 IUD strings visible on examShe is happy with the IUDRTC in one year for WWE or sooner if needed Time spent with the patient was 20 minutes [id number] Magalis Diallo [place] [address],[place] [address] 12/17/2023 16:49:51 12/17/2023 17:42:11 Screening procedure 67337959 Z13.9 Gynecologi c examination 48865676 Z01.419 Z11.3 Z11.8 WWEpap due 2024declin ed STI screen Take Calcium with Vitamin D daily if not receiving in daily diet.It is strongly advised to have an annual flu shot and up can obtain at most pharmacies . If you have not had a TDap shot in the last 10 years you should obtain one as well. Discussed with patient & provided with informatio n regarding Gardisil vaccine to prevent the 4 strains for HPV that cause cervical cancer if under age 26. Encourage safe sexual practices, to use condoms and limit partners if not already in a monogamous relationsh ip.Do monthly self breast exams. Engage in regular exercise. Avoid tobacco and illicit drugs. This lifestyle behavior pattern will lead to less health conditions and longer life span. If BMI greater than 25 dietary consult advised. Patient received above instructio ns, and questions have been answered. If you have any questions please call or respond to this email. Patient was made aware of the patient portal and may obtain a paper copy of today's plan if desired. Removal of intrauterine contraceptive device done [id number] 30883 Z30.432 consent reviewed and signedIUD removed (see procedure note)discu ssed TTC, Timed IC, start daily PNV [id number] [facility] [address],[place] [address] 05/11/2024 09:29:08 05/11/2024 09:51:40 [id number] Lori Hogan [facility] [address],[place] [address] 05/11/2024 09:29:31 05/11/2024 10:32:21 Amenorrhea 52580957 N91.2 Gynecologi c examination 96062138 Z11.3 [id number] [facility] [address],[place] [address] 06/08/2024 16:30:33 06/08/2024 17:09:15 screening 260364520 Z36.82 Z3A.12 [id number] Lori Hogan [facility] [address],[place] [address] 06/10/2024 16:19:15 06/10/2024 17:13:14 Gestation period, 13 weeks 30986073 Z3A.13 Routine an tenatal care 540633664 Z34.91 [id number] Lori Hogan [facility] [address],[place] [address] 07/08/2024 15:50:13 07/08/2024 17:04:41 Gestation period, 17 weeks 14108611 Z3A.17 [id number] [facility] [address],[place] [address] 07/27/2024 16:41:22 07/27/2024 17:45:10 screening for malformation 425966426 Z36.3 Z3A.19 [id number] [facility] [address],[place] [address] 07/27/2024 16:44:01 07/28/2024 02:02:47 Routine care 436555650 Z34.91 [id number] Lori Hogan [facility] [address],[place] [address] 08/24/2024 16:46:40 08/24/2024 17:22:30 Routine care 638059754 Z34.91 Gestation period, 23 weeks 89081160 Z3A.23 [id number] Lori Hogan [facility] [address],[place] [address] 09/28/2024 15:50:56 09/28/2024 17:27:16 Gestation period, 28 weeks 83517174 Z3A.28 [id number] [facility] [address],[place] [address] 10/12/2024 10:22:55 10/12/2024 11:12:35 History of SARS-CoV-2 5726124279 45668654 Z86.16 O99.210 Z3A.30 [id number] Lori Hogan [facility] [address] [place] [address] 10/12/2024 10:26:57 10/12/2024 11:40:50 Gestation period, 30 weeks 32025390 Z3A.30 [id number] Lori Hogan [facility] [address],[place] [address] 10/28/2024 15:26:06 10/28/2024 15:59:26 Gestation period, 33 weeks 47535114 Z3A.33 366402 [facility] [address] [place] [address] 11/11/2024 15:26:41 11/14/2024 10:59:48 History of SARS-CoV-2 8669539913 36605549 Z86.16 O99.210 Z3A.35 [id number] Lori Hogan [facility] [address] [place] [address] 11/11/2024 15:27:09 11/14/2024 06:12:11 Gestation period, 35 weeks 53973765 Z3A.35 [id number] Lori Hogan [facility] [address],[place] [address] 11/16/2024 17:28:33 11/17/2024 04:35:14 screening 716654849 Z36.85 Gestation period, 35 weeks 61445584 Z3A.35 314005 Naila Juarez [facility] [address],[place] [address] 11/23/2024 15:54:02 11/23/2024 16:33:33 Maternal obesity complicating , childbirth and the puerperium, antepartum 5651448350 07 O99.213 Z3A.36 [id number] Loren Nicole [facility] [place] [address],[place] [address] 11/23/2024 15:54:37 11/24/2024 11:16:36 Maternal obesity complicating , childbirth and the puerperium, antepartum 2443481190 07 O99.213 Z3A.36 [id number] Lori Hogan [facility] [address],[place] [address] 11/23/2024 15:55:14 11/23/2024 17:36:49 Gestation period, 36 weeks 97329337 Z3A.36 004852 Keira Davies [facility] [address],[place] [address] 11/30/2024 16:24:27 11/30/2024 17:19:10 97402465 Z33.1 Maternal o besity complicating , childbirth and the puerperium, antepartum 7539771033 07 O99.210 [id number] Barbie Arana [facility] [place] [address],[place] [address] 11/30/2024 16:24:49 11/30/2024 17:26:02 Maternal obesity complicating , childbirth and the puerperium, antepartum 7414170723 07 O99.213 Z3A.37 [id number] Lori Hogan [facility] [address],[place] [address] 11/30/2024 16:25:23 11/30/2024 17:48:29 Gestation period, 37 weeks 76791722 Z3A.37 [id number] [facility] [address],[place] [address] 12/07/2024 17:04:19 12/08/2024 10:03:10 Maternal obesity complicating , childbirth and the puerperium, antepartum 7578154931 07 O99.213 Z86.16 [id number] Isabella West [facility] [address],[place] [address] 12/07/2024 17:04:34 12/08/2024 08:27:45 Maternal obesity complicating , childbirth and the puerperium, antepartum 6638083851 07 O99.210 [id number] Lori Hogan [facility] [address],[place] [address] 12/07/2024 17:05:53 12/08/2024 03:57:01 Gestation period, 38 weeks 22386994 Z3A.38 [id number] [facility] [address],[place] [address] 12/14/2024 16:33:00 12/14/2024 17:02:46 Maternal obesity complicating , childbirth and the puerperium, antepartum 0276573294 07 O99.213 Z3A.39 [id number] Isabella West [facility] [address],[place] [address] 12/14/2024 16:33:24 12/15/2024 13:13:18 Maternal obesity complicating , childbirth and the puerperium, antepartum 8202061842 07 O99.210 [id number] Lori Hogan [facility] [address] [place] [address] 12/14/2024 16:33:36 12/15/2024 03:27:29 Gestation period, 39 weeks 61125189 Z3A.39 Health Concerns Section Related Observation LastModified by Organization Detai ls LastModified Time None Recorded Concern Status LastModified by Organization Details LastModified Time None Recorded Advance Directives Directive N: Payers Encounter Date Sequence Insurance Name Policy Number Policy Wilson Covered Member ID Wilson Member ID Guarantor Name 12/07/2024 2 [employer] [id number] Gurmeet Ortega [id number] Mary Nahun 12/07/2024 1 [facility] [id number] Mary L Nahun [id number] Mary Nahun 12/14/2024 2 [employer] [id number] Gurmeet Ortega [id number] Mary Nahun 12/14/2024 1 [facility] [id number] Mary L Nahun [id number] Mary Nahun 12/14/2024 2 [employer] [id number] Gurmeet Ortega [id number] Mary Nahun 12/14/2024 1 [facility] [id number] Mary L Nahun [id number] Mary Nahun 12/14/2024 2 [employer] [id number] Gurmeet Ortega [id number] Mary Nahun 12/14/2024 1 [facility] [id number] Mary L Nahun [id number] Mary Nahun OBGyn Episode Ob Episode Information Episode Created Date Number of Fetuses Patient Bloodtype Patient rh Status Prepregnancy Weight lbs Domestic Partner Domestic Partner Phone Father Name Office Clerk Routine Status 06/10/20 24 1 A Positive 236 OPEN Fetus Data First Name Last Name Admitted to NICU Weight (g) Sex Living Outcome Pediatric Complications Fetus ID Race Codes Race Delivery Type [id number] Problems Problem Notes Problem Name Start Date End Date Resolution Snomed Code Not e Cystic fibrosis 661307004 + Ca rrier - Low risk to fetus Obesity [id number] BMI 39- pl an testingstart bASA Bimal Calculation Initial Bimal Date Initial Exam Date Initial Exam Provider Initial Ultrasound Date Last Menstrual Period Date Ultra Sound Weeks Gestation 12/16/2024 05/11/2024 Lori Whitegle 05/11/2024 03/11/2024 9 Eighteen To Twenty Week [...] Weight in lbs Pre/Post Dialysis Refused Weight 237.4704552705 BP Diastolic BP Location Tested BP Systolic [...] Type Weight in lbs Pre/Post Dialysis Refused 236.325586711481 BP Diastolic BP Location Tested BP Systolic [...] Type Weight in lbs Pre/Post Dialysis Refused 239.012527242449 BP Diastolic BP Location Tested BP Systolic [...] Type Weight in lbs Pre/Post Dialysis Refused 244.478467530162 BP Diastolic BP Location Tested BP Systolic [...] Type Weight in lbs Pre/Post Dialysis Refused 250.198581610355 BP Diastolic BP Location Tested BP Systolic [...] Type Weight in lbs Pre/Post Dialysis Refused 252.406252948403 BP Diastolic BP Location Tested BP Systolic BP Type 86 133 Fetus Heart Rate Present Fetus Movement A Yes Comments Patient is having back and h ip pain, nausea and vomiting. 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, signed up for class f/u 2 weeks Flowsheet Date 10/28/2024 Martini Score Blood Edema Fundus Height Fundus Units Glucose Ketones Leukocytes Nitrite Labor Signs Protein Cervic Dilation Cervic Effacement Cervic Station neg none 35 cm Type Weight in lbs Pre/Post Dialysis Refused Weight 258.523933321631 BP Diastolic BP Location Tested BP Systolic [...] Type Weight in lbs Pre/Post Dialysis Refused 259.493011439457 BP Diastolic BP Location Tested BP Systolic [...] Weight in lbs Pre/Post Dialysis Refused Weight 263.751464895728 BP Diastolic BP Location Tested BP Systolic [...] Type Weight in lbs Pre/Post Dialysis Refused 262.272312937821 BP Diastolic BP Location Tested BP Systolic BP Type 84 126 Fetus Heart Rate Present Fetus Movement A Yes Comments patient states that having n umbness and tingling in hands, BH contractions, discharge and swelling. ice and braces ok considering iol, +FM precautions and education bpp 06/30 Flowsheet Date 11/30/2024 Martini Score Blood Edema Fundus Height Fundus Units Glucose Ketones Leukocytes Nitrite Labor Signs Protein Cervic Dilation Cervic Effacement Cervic Station Type Weight in lbs Pre/Post Dialysis Refused Weight 269.566736788461 BP Diastolic BP Location Tested BP Systolic [...] Type Weight in lbs Pre/Post Dialysis Refused 269.752095019328 BP Diastolic BP Location Tested BP Systolic [...] Weight in lbs Pre/Post Dialysis Refused Weight 270.166542397973 BP Diastolic BP Location Tested BP Systolic [...] Type Weight in lbs Pre/Post Dialysis Refused 270.10733473579 BP Diastolic BP Location Tested BP Systolic [...] Weight in lbs Pre/Post Dialysis Refused Weight 269.452991651220 BP Diastolic BP Location Tested BP Systolic BP Type 89 140 Fetus Heart Rate Present Fetus Movement Comments Flowsheet Date 12/14/2024 Martini Score Blood Edema Fundus Height Fundus Units Glucose Ketones Leukocytes Nitrite Labor Signs Protein Cervic Dilation Cervic Effacement Cervic Station neg trace Type Weight in lbs Pre/Post Dialysis Refused 269.843077810897 BP Diastolic BP Location Tested BP Systolic [...]
--- OUTSIDE RECORDS SUMMARY | 2024-12-15 16:30 | XMS_ITS | Clinical Summary ---
Author Organization [facility] Address [address] [address] [place] [address] Phone Care Team Providers Care Promotions Representative Name Role Phone Suzie Luna MD Primary Care Provider [phone] Active Problems Problem Noted Date Diagnosed Date Obstructive sleep apnea (adult) (pediatric) 06/22 Social History Tobacco Use Types Packs/Day Years Used Date Smoking Tobacco: Never Assessed Comments Unknown Sex and Gender Information Value Date Recorded Sex Assigned at Not on file Legal Sex Female 5:06 PM CDT Gender Identity Not on file Sexual Orientation Not on file Plan of Treatment Health Maintenance Due Date Last Done Comments CERVICAL CANCER SCREENING 2020 PAP SMEAR 2020 PAP SMEAR 2020 DTAP/TDAP/TD VACCINES (7 - T d or Tdap) 04/02/2022 04/02/2012, 04/29/2004, 07/15/2000, Additional history exists INFLUENZA VACCINE (#1) 2024 06/25/2019 HEPATITIS B VACCINES Completed 05/10/2001, 10/28/2000, 01/20/2000 HPV VACCINES Completed 10/04/2012, 05/22, 04/02/2012 Insurance [facility] [id number] [facility] Address: [address] [place] [address] Care Teams Promotions Representative Relationship Specialty Start Date End Date Suzie Luna MD PCP - General Family Practice 07/06/23
--- OUTSIDE RECORDS SUMMARY | 2024-12-15 16:31 | XMS_ITS | Clinical Summary ---
Author Organization [facility] [id number] [facility] Address [address] [place] [address] Care Team Providers Care Rail Switchman Name Role Phone Ivy Salas NP Primary Care Provider [phone] Allergies No known active allergies Medications fluticasone propionate (FLONASE) 50 mcg/actuation nasal spray SPRAYS 2 SPRAY IN EACH NOSTRIL ONCE A DAY 16 mL 5 11/06/2020 Active montelukast (SINGULAIR) 10 mg tablet TAKE 1 TABLET BY MOUTH EVERY DAY AT NIGHT 30 tablet 8 03/17/2021 Active fexofenadine (LOIS) 180 mg tablet TAKE 1 TABLET (180 MG TOTAL) BY MOUTH DAILY NEEDED (ALLERGIES) 30 tablet 9 03/28/2021 Active meloxicam (MOBIC) 15 mg tablet Take 1 tablet (15 mg total) by mouth daily 30 tablet 2 03/30/2024 Active Active Problems Problem Noted Date Diagnosed Date Plantar fasciitis 03/30/2024 Assessment & Plan (03/30/2024 1:36 PM CDT): She was instructed on heel cord stretches. She will do them every night and every morning. She will start on meloxicam 15 mg daily for the next month. She will take it with food and avoid other anti-inflammatories. She will continue to curtail her activities till her feet and ankles are feeling better then she will resume normal activity. If things are not improving in the next couple of weeks or if she can not resume normal activity in the next four weeks she is to call for referral to interventionist. Physical exam, annual 07/28/2023 Assessment & Plan (07/28/2023 9:20 PM REEFER ENGINEER): CBC, CMP, lipids ordered today. Patient up-to-date on her screening. Continue healthy diet and exercise. Encouraged vaccines. Obstructive sleep apnea (adult) (pediatric) 06/22 Dysmenorrhea 08/03/2019 Assessment & Plan (03/19/2020 10:21 AM CDT): She will switch her control at the end of this pack. If she continues to have the side effect of discoloration to her teeth in the next few months she is to call. Allergic rhinitis 08/03/2019 Assessment & Plan (03/19/2020 10:21 AM CDT): She was given refills on her Singulair and Lois. Resolved Problems Problem Noted Date Diagnosed Date Resolved Date Excessive daytime sleepiness 06/08/2023 03/30/2024 Assessment & Plan (06/08/2023 9:24 PM CDT): Scotia scale 15 in office. Order placed for home sleep study. Will follow results and will change treatment as necessary Constipation 12/21/2020 03/30/2024 Assessment & Plan (12/21/2020 9:03 AM CDT): She will try Linzess 145 mcg daily. She will take it 30 minutes before eating and drinking every morning. We discussed if she continues to have blood or if she continues with constipation she is to call for GI referral. We also discussed taking the medication for a few weeks and then going off of the medication to see if her bowels would continue to be normal. If they do not we will consider GI referral. If she develops any other problems or complaints she is to call. BMI 30.0-30.9,adult 03/19/2020 03/30/20 Assessment & Plan (03/19/2020 10:21 AM CDT): BMI Follow-up includes: nutrition counseling, exercise counseling and education provided. Fatigue 08/03/2019 03/30/2024 Assessment & Plan (07/28/2023 9:19 PM REEFER ENGINEER): TSH, vitamin B12, vitamin-D, HARRY, RF, CRP, ESR ordered today. Will follow lab results. Assessment & Plan (08/03/2019 10:28 AM REEFER ENGINEER): She will have blood work today. We discussed only have the results of the blood work we will follow up. If her any of her symptoms worsen or persist she is to call. Immunizations Immunization Administration Dates Next Due DTaP 5 Pertussis 04/29/2004, 0,1999,08/20,1999 HPV, Quadrivalent 10/04/2012,06/04/2012,04/02/20 12 Hep A, Pediatric 06/17/2006,07/28/2005 Hep B, Adolescent or Pediatric 05/10/2001,2000,01/20/2000 HiB 1999,1999,1999 Hib (PRP-T) 07/15/2000 IPV 04/29/2004, 0,01/20/2000,08/20,1999 Influenza, Quadrivalent, Spl it, Preservative Free, Intramuscular 06/25/2019 Influenza, Unspecified 03/30/2024(Deferr ed: Patient Refused),07/28/2023(Deferred: Patient Refused),07/28/2023(Deferred: Patient Refused),07/05/2022(Deferred: Patient Refused) MMR 04/29/2004,04/21/2000 Meningococcal Conjugate (Menveo) 04/02/2012 Moderna SARS-CoV-2 Monovalen t Vaccination (12+ YRS) 02/28/2021 Tdap 04/02/2012 Varicella 04/02/2012,04/21/2000 Family History Medical History Relation Name Comments No Known Problems Father No Known Problems Mother Relation Name Status Comments Father Alive Mother Alive Social History Tobacco Use Types Packs/Day Years Used Date Smoking Tobacco: Never Tobacco Cessation:Counseling Given: Not Answered PHQ-2 Answer Date Recorded PHQ-2 Total Score (If total score is 3 or more points, staff should administer the PHQ-9) 0 03/30/2024 Personal Safety Answer Date Recorded Getting School Help Needed Not on file 09/12 Comments No Sex and Gender Information Value Date Recorded Sex Assigned at Not on file Legal Sex Female 10:43 PM REEFER ENGINEER Gender Identity Female 06/03/2023 6:40 AM CDT Sexual Orientation Straight 06/03/2023 6: 40 AM CDT Obstetrics History Last Filed Vital Signs Vital Sign Reading Time Taken Comments Blood Pressure 116/72 03/30/2024 12:59 PM CDT Pulse 67 03/30/2024 12:59 PM CDT Temperature 36.9 C (98.4 F) 03/30/2024 12:59 PM CDT Respiratory Rate 16 03/30/2024 12:59 PM CDT Oxygen Saturation 99% 03/30/2024 12:59 PM CDT Inhaled Oxygen Concentration - - Weight 103.4 kg (228 lb) 03/30/2024 12:59 PM CDT Height 170.2 cm (5' 7 ) 03/30/2024 12:59 PM CDT Body Mass Index 35.71 03/30/2024 12:59 PM CDT Plan of Treatment Health Maintenance Due Date Last Done Comments Hepatitis C Screening 1999 DTaP/Tdap/Td Vaccine (7 - Td or Tdap) 04/02/2022 04/02/2012, 04/29/2004, 07/15/2000, Additional history exists Covid-19 Vaccine ( season) 2024 02/28/2021 Influenza Vaccine (#1) 2024 06/25/2019 Regular Well Visit/Exam 18-64 07/28/2024 07/28/2023, 03/19/2020 Cervical Cancer Screening 12/04/2024 12/04/2021, Depression Screening 03/30/2025 03/30/2024, 07/28/2023, 07/28/2023, Additional history exists Hepatitis B Screening Completed 05/10/2001 , 10/28/2000, 01/20/2000 Varicella Vaccines Completed 04/02/2012, 04/21/2000 HPV Vaccines Completed 10/04/2012, 05/22, 04/02/2012 Pneumococcal vaccine <65 Aged Out No longer eligible based on patient's age to complete this topic Procedures Procedure Name Priority Date/Time Associated Diagnosis Comments PAP SMEAR Routine 12/04/2021 from Last 3 Months or Most Recently Relevant to Health Maintenance Results * PAP SMEAR (12/04/2021) SCRIBED Pap test normal us Historical Provider MD HEALTH MAINTENANCE Final Result from Last 3 Months or Most Recently Relevant to Health Maintenance Insurance [facility] CHOICE [facility] H[facility]/PPO Address: [facility] [id number] [place] [id number] [facility] CHOICE [facility]US [facility] H[facility]/PPO Address: [facility] [id number] [place] [id number] Care Teams Rail Switchman Relationship Specialty Start Date End Date Ivy Salas NP [id number] [facility] [address] [address] PCP - General Lead Radiologic Technologist 07/14/22
--- OUTSIDE RECORDS SUMMARY | 2024-12-15 16:31 | XMS_ITS | Continuity of Care Document ---
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 Discussed plan. [email or web address] Not available 12/14/2024 17:33:18 Plan of Treatment Reminders Order Date Submit Date Provider Last Modified By Organization Details Last Modified Time Details Appointments INDUCTION 2024 04:00P M Lori Hogan CNM Not available Not available Not available Lab None recorded. Referral None recorded. Procedures None recorded. Surgeries None recorded. Imaging None recorded. Medication Orders None recorded. Patient TargetsNo targets recorded. Patient InstructionsNo instructions recorded. Reason for Referral None Reported. Results Created Date Observation Date Name Description Value Unit Range Abnormal Flag Note LastModifiedBy Organization Detail LastModifiedTime 07/27/2007/27/2024 US, obste tric, 2nd or 3rd trime ster No observ ation record ed. [email or web address] [facility] [address], [place], [address], 07/27/2024 17:45:29 07/27/20 24 07/27/2024 US, obste tric, 2nd or 3rd trime ster No observ ation record ed. [email or web address] [address], [place], [address], 07/27/2024 21:33:42 10/12/19 25 10/12/2024 US, obste tric, follo w-up No observ ation record ed. [email or web address] [facility] [address], [place], [address], 10/12/2024 13:51:30 10/12/19 25 10/12/2024 US, obste tric, follo w-up No observ ation record ed. [email or web address] [address], [place], [address], 10/13/2024 18:35:26 11/11/19 25 11/11/2024 US, obste tric, follo w-up No observ ation record ed. [address], [place], [address], 11/15/2024 23:11:50 11/11/19 25 11/11/2024 US, obste tric, follo w-up [facility] [address], [place], [address], 11/11/2024 17:56:31 11/24/19 25 11/23/2024 US, obste tric, bioph ysica l profi le + non-s tress test No observ ation record ed. [email or web address] [facility] [address], [place], [address], 11/23/2024 18:47:09 11/24/19 25 11/23/2024 US, obste tric, bioph ysica l profi le + non-s tress test No observ ation record ed. [email or web address] [address], [place], [address], 11/23/2024 20:42:37 11/25/19 25 11/24/2024 non-s tress test No observ ation record ed. [email or web address] [facility] [address], [place], [address], 11/24/2024 09:51:27 12/01/19 25 11/30/2024 non-s tress test No observ ation record ed. [email or web address] [facility] [address], [place], [address], 11/30/2024 17:15:41 12/01/19 25 11/30/2024 US, obste tric, bioph ysica l profi le + non-s tress test No observ ation record ed. [email or web address] [facility] [address], [place], [address], 11/30/2024 17:58:51 12/01/19 25 11/30/2024 US, obste tric, bioph ysica l profi le + non-s tress test No observ ation record ed. [email or web address] [address], [place], [address], 11/30/2024 18:36:20 12/03/19 US, obste tric, bioph ysica l profi le + non-s tress test No observ ation record ed. [email or web address] [facility] [address], [place], [address], 12/02/2024 16:53:35 12/08/19 25 12/07/2024 US, obste tric, follo w-up No observ ation record ed. [email or web address] [address], [place], [address], 12/09/2024 16:58:31 12/08/19 25 12/08/2024 US, obste tric, follo w-up No observ ation record ed. [email or web address] [facility] [address], [place], [address], 12/08/2024 13:56:01 12/08/19 25 12/08/2024 US, obste tric, bioph ysica l profi le + non-s tress test No observ ation record ed. [email or web address] [facility] [address], [place], [address], 12/08/2024 13:56:13 12/08/19 25 12/07/2024 non-s tress test No observ ation record ed. [email or web address] [facility] [address], [place], [address], 12/07/2024 20:10:22 12/08/19 25 12/07/2024 non-s tress test No observ ation record ed. [email or web address] [facility] [address], [place], [address], 12/07/2024 20:12:09 12/15/19 25 12/14/2024 US, obste tric, bioph ysica l profi le + non-s tress test No observ ation record ed. [email or web address] [facility] [address], [place], [address], 12/14/2024 18:23:21 12/15/19 25 12/14/2024 US, obste tric, follo w-up No observ ation record ed. [email or web address] [address] [facility], [place], [address], 12/15/2024 16:09:35 12/15/19 25 12/14/2024 non-s tress test No observ ation record ed. [email or web address] [facility] [address], [place], [address], 12/14/2024 19:28:04 12/15/19 non-s tress test No observ ation record ed. [email or web address] [facility] [address], [place], [address], 12/14/2024 19:30:58 Result Notes None recorded. Problems Name Problem SNOMED Code Status Onset Date Resolution Date Notes Provider Name and Address Organization Details Recorded Time 48174636 Active 2023 Isabella West null, [facility] 4 17:02:18 Obesity 516236824 Active BMI 39- plan testing start Troy Hogan CNM [address], [place], [address], [facility] 4 17:11:03 Cystic fibrosis 938141143 Active + Carrier - Low risk to fetus Sheila Alex [facility], [facility] 4 16:57:53 Cystic fibrosis 961621326 Active + Carrier - Low risk to fetus Sheila Alex [facility], [facility] 4 16:57:53 Problem Notes None recorded. Procedures Surgical History Date Name Laterality Status Provider Name and Address Organization Details Recorded Time 05/11/20 24 Date of Last Pap Smear completed Isabella West [facility] 06/10/2024 14:48:49 12/17/19 24 IUD Removal completed NELY Cadet [address], [place], [address], [facility] 12/17/2023 17:32:17 12/12/19 22 IUD Insertion completed Lori Hogan CNM [address], [place], [address], [facility] 12/11/2021 18:48:33 09/21/19 17 extraction of wisdom tooth completed Isabella West [facility] 12/09/2021 14:25:26 Imaging Results None recorded. Procedure Notes None recorded. Medical Equipment None [...] INSERTED 2 AND NEEDS REMOVED 9 LOT UP119SU EXP 12/2023 Not Available Not Available Not [...] Address Organization Details Last Updated DateTime 5 508073. 27878 g 44.8 kg/m2 165.1 cm 165.1 cm 44.8 kg/m2 892491. 35 g 140 mm[Hg] 89 mm[Hg] 140 mm[Hg] 89 mm[Hg] Isabella West [facility] 5 19:22:36 Social History Question Answer Notes LastModified by Organizat ion Details LastModified Time Tobacco Smoking Status Never Smoker Deepak schwartz, [facility] 01/20/2022 17:23:59 Do You Have An Advance Directive? No [email or web address] Information n ot available 12/04/2021 What Is Your Level Of Alcohol Consumption? None [email or web address] Information not available 05/11/2024 If You Are , What Was Your Level Of Alcohol Consumption Prior To ? Occasional [email or web address] Information not available 05/11/2024 How Many Years Have You Consumed Alcohol? 1 Information not available 12/17/2023 Are You Blind Or Do You Have Difficulty Seeing? No [email or web address] Information n ot available 12/04/2021 What Is Your Level Of Caffeine Consumption? Moderate Information not available 12/17/2023 How Much Tobacco Do You Chew? None [email or web address] Information not available 12/04/2021 In The 14 Days Before Symptom Onset, Have You Had Close Contact With A Laboratory-confirm ed COVID-19 While That Case Was Ill? No [email or web address] Information n ot available 12/04/2021 In The 14 Days Before Symptom Onset, Have You Had Close Contact With A Person Who Is Under Investigation For COVID-19 While That Person Was Ill? No [email or web address] Information not available 12/04/2021 Have You Been To An Area Known To Be High Risk For COVID-19? No Information not available 12/04/2021 Are You Deaf Or Do You Have Serious Difficulty Hearing? No Information not available 12/04/2021 What Type Of Diet Are You Following? REGULAR Information n ot available 12/04/2021 What Is The Highest Grade Or Level Of School You Have Completed Or The Highest Degree You Have Received? 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 No Information not available 12/17/2023 Have You Ever Been Counseled For Unhealthy Alcohol Use? No [email or web address] Information not available 01/20/2022 Do You Use Protection During Sex? No [email or web address] Information not available 12/04/2021 Do You Use Your Seat Belt Or Car Seat Routinely? Yes [email or web address] Information not available 12/04/2021 Do You Have Smoke And Carbon Monoxide Detectors In Your Home? Yes [email or web address] Information not available 12/04/2021 How Much Tobacco Do You Smoke? No [email or web address] Information not available 12/04/2021 Do You Feel Stressed (tense, Restless, Nervous, Or Anxious, Or Unable To Sleep At Night)? CU80814-1 [email or web address] Information not available 12/04/2021 Do You Use Any Illicit Or Recreational Drugs? No [email or web address] Information not available 12/04/2021 Do You Use Sunscreen Routinely? Yes [email or web address] Information not available 12/04/2021 Has Tobacco Cessation Counseling Been Provided? No Information not available 01/20/2022 Have You Used IV Drugs? No [email or web address] Information not available 12/04/2021 Do You Or Have You Ever Used Any Other Forms Of Tobacco Or Nicotine? No [email or web address] Information not available 01/20/2022 Sex: Unknown Functional Status Question Answer Note LastModified by Organizat ion Details LastModified Time Do you have difficulty walking or climbing stairs? No Information not available 01/20/2022 Are you able to walk? YESWOREST [email or web address] Information not available 12/04/2021 Are you able [...] Details LastModified Time Maternal Grandmother Hypertensive disorder [email or web address] Not available 12/04 18:21:26 Maternal Grandmother Diabetes mellitus [email or web address] Not available 12/04 18:21:26 Maternal Grandmother Malignant tumor of ovary 20 [email or web address] Not available 2023 16:41:30 Maternal Grandmother Malignant tumor of ovary Not available 2023 16:53:09 Mother Hypertensive disorder [email or web address] Not available 12/04 18:21:26 Brother Asthma [email or web address] Not availabl e 12/04/2021 18:21:26 Maternal Aunt Hypertensive disorder [email or web address] Not available 2021 17:56:25 Maternal Uncle Hypertensive disorder [email or web address] Not available 2021 17:56:26 Unspecified Relation Diabetes mellitus MATERN AL GREAT GRANDM A [email or web address] Not available 12/11/2021 17:56:26 Paternal Uncle Malignant tumor of pancreas 40 [email or web address] Not available 2024 14:23:32 Medical History Condition Response Other N Blood Transfusion N Dermatologic Disorders N Gestational Diabetes N Anxiety Disorder N Autoimmune disease N Arthritis N Polyps N Infertility N Acid Reflux (GERD) N Cancer N Varicosities N Stroke N Neurologic/Epilepsy N Fibromyalgia N Headaches N Kidney Disease N Heart Problems N Kidney or Bladder Problems N Eating Disorder N Art (IVF or FET) N Hepatitis/Liver Disease N No Past Medical History N Urinary Tract Infection N Asthma Y Trauma/Violence N Thrombophilias N Allergies (Food, seasonal, environmental ) Y Breast Cancer N Drug/Latex Allergies/Reactions N Lung Disease N Defects or Inherited Disease N Breast Problem N Hematologic disorders N Anesthesia Complications N History of STI N Deep Vein Thrombosis N Polycystic ovary syndrome N History of abnormal pap N Endometriosis N High Cholesterol N Thyroid Problems N GI Problems Y Anemia N Psychiatric Illness N Ovarian Cancer N Diabetes N Pulmonary (TB, Asthma) N Eczema N Abuse/Domestic Violence N Depression/ depression N Heart Disease N Pre-Eclampsia N Hypertension N Osteoporosis N Gynecological History Statement/Question Response Abnormal Pap [...] SNOMED-CT Code Diagnosis ICD10 Code Diagnosis Note [id number] Lori Hogan [facility] [address] [address] 11/16/2024 17:28:33 11/17/2024 04:35:14 screening 767826980 Z36.85 Gestation period, 35 weeks 27692849 Z3A.35 [id number] Naila Juarez [facility] [address] [address] 11/23/2024 15:54:02 11/23/2024 16:33:33 Maternal obesity complicating , childbirth and the puerperium, antepartum 6799860638 07 O99.213 Z3A.36 [id number] Loren Rivera [facility] [address],[place] [address] 11/23/2024 15:54:37 11/24/2024 11:16:36 Maternal obesity complicating , childbirth and the puerperium, antepartum 9131287576 07 O99.213 Z3A.36 [id number] Lori Hogan [facility] [address],[place] [address] 11/23/2024 15:55:14 11/23/2024 17:36:49 Gestation period, 36 weeks 00464898 Z3A.36 [id number] Keira Davies [facility] [address],[place] [address] 11/30/2024 16:24:27 11/30/2024 17:19:10 08936758 Z33.1 Maternal o besity complicating , childbirth and the puerperium, antepartum 2749696565 07 O99.210 [id number] [facility] [address],[place] [address] 11/30/2024 16:24:49 11/30/2024 17:26:02 Maternal obesity complicating , childbirth and the puerperium, antepartum 0617984512 07 O99.213 Z3A.37 [id number] Lori Hogan [facility] [address],[place] [address] 11/30/2024 16:25:23 11/30/2024 17:48:29 Gestation period, 37 weeks 25592319 Z3A.37 [id number] [facility] [address],[place] [address] 12/07/2024 17:04:19 12/08/2024 10:03:10 Maternal obesity complicating , childbirth and the puerperium, antepartum 1490400201 07 O99.213 Z86.16 [id number] Isabella West [facility] [address],[place] [address] 12/07/2024 17:04:34 12/08/2024 08:27:45 Maternal obesity complicating , childbirth and the puerperium, antepartum 9670897605 07 O99.210 [id number] Lori Hogan [facility] [address],[place] [address] 12/07/2024 17:05:53 12/08/2024 03:57:01 Gestation period, 38 weeks 96773471 Z3A.38 [id number] [facility] [address],[place] [address] 12/14/2024 16:33:00 12/14/2024 17:02:46 Maternal obesity complicating , childbirth and the puerperium, antepartum 1723720827 07 O99.213 Z3A.39 [id number] Isabella West [facility] [address],[place] [address] 12/14/2024 16:33:24 12/15/2024 13:13:18 Maternal obesity complicating , childbirth and the puerperium, antepartum 4827527312 07 O99.210 [id number] [facility] [address] [address] 12/14/2024 16:33:36 12/15/2024 03:27:29 Gestation period, 39 weeks 48689960 Z3A.39 Health Concerns Section Related Observation LastModified by Organization Detai ls LastModified Time None Recorded Concern Status LastModified by Organization Details LastModified Time None Recorded Payers Encounter Date Sequence Insurance Name Policy Number Policy Wilson Covered Member ID Wilson Member ID Guarantor Name 12/14/2024 2 [facility] [id number] Rossjosé manuelgill Ortega [id number] Mary Nahun 12/14/2024 1 [facility] [id number] Mary L Nahun [id number] Mary Nahun OBGyn Episode Ob Episode Information Episode Created Date Number of Fetuses Patient Bloodtype Patient rh Status Prepregnancy Weight lbs Domestic Partner Domestic Partner Phone Father Name Fire Control Technician Status 06/10/20 24 1 A Positive 236 OPEN Fetus Data First Name Last Name Admitted to NICU Weight (g) Sex Living Outcome Pediatric Complications Fetus ID Race Codes Race Delivery Type [id number] Problems Problem Notes Problem Name Start Date End Date Resolution Snomed Code Not e Cystic fibrosis 944875680 + Ca rrier - Low risk to fetus Obesity 492987325 BMI 39- pl an testingstart bASA Bimal Calculation Initial Bimal Date Initial Exam Date Initial Exam Provider Initial Ultrasound Date Last Menstrual Period Date Ultra Sound Weeks Gestation 12/16/2024 05/11/2024 Lori Hogan 05/11/2024 03/11/2024 9 Eighteen To Twenty Week Bimal Update Ultra Sound Date Fundal Height At Umbil Quickening Date Ultra Sound Latest Weeks Gestation Final Bimal Confirmed By Final Ibmal Confirmed Date Final Bimal Date Ultra Sound Latest Days Gestation 0 0 Pre-oumou Flowsheet Flowsheet Date 06/10/2024 Martini Score Blood Edema Fundus Height Fundus Units Glucose Ketones Leukocytes Nitrite Labor Signs Protein Cervic Dilation Cervic Effacement Cervic Station Type Weight in lbs Pre/Post Dialysis Refused Weight 237.5886545495 BP Diastolic BP Location Tested BP Systolic [...] Type Weight in lbs Pre/Post Dialysis Refused 236.007821491469 BP Diastolic BP Location Tested BP Systolic [...] Type Weight in lbs Pre/Post Dialysis Refused 239.278534932786 BP Diastolic BP Location Tested BP Systolic [...] Type Weight in lbs Pre/Post Dialysis Refused 244.454955763852 BP Diastolic BP Location Tested BP Systolic [...] Type Weight in lbs Pre/Post Dialysis Refused 250.991906462515 BP Diastolic BP Location Tested BP Systolic [...] Type Weight in lbs Pre/Post Dialysis Refused 252.953650539645 BP Diastolic BP Location Tested BP Systolic BP Type 86 133 Fetus Heart Rate Present Fetus Movement A Yes Comments Patient is having back and h ip pain, nausea and vomiting. 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, signed up for class f/u 2 weeks Flowsheet Date 10/28/2024 Martini Score Blood Edema Fundus Height Fundus Units Glucose Ketones Leukocytes Nitrite Labor Signs Protein Cervic Dilation Cervic Effacement Cervic Station neg none 35 cm Type Weight in lbs Pre/Post Dialysis Refused Weight 258.213331327018 BP Diastolic BP Location Tested BP Systolic [...] Type Weight in lbs Pre/Post Dialysis Refused 259.073194353197 BP Diastolic BP Location Tested BP Systolic [...] Weight in lbs Pre/Post Dialysis Refused Weight 263.636766772397 BP Diastolic BP Location Tested BP Systolic [...] Type Weight in lbs Pre/Post Dialysis Refused 262.767101108613 BP Diastolic BP Location Tested BP Systolic [...] Weight in lbs Pre/Post Dialysis Refused Weight 269.651634746392 BP Diastolic BP Location Tested BP Systolic [...] Type Weight in lbs Pre/Post Dialysis Refused 269.400543688789 BP Diastolic BP Location Tested BP Systolic [...] Weight in lbs Pre/Post Dialysis Refused Weight 270.506412561498 BP Diastolic BP Location Tested BP Systolic [...] Type Weight in lbs Pre/Post Dialysis Refused 270.98318926732 BP Diastolic BP Location Tested BP Systolic [...] Weight in lbs Pre/Post Dialysis Refused Weight 269.761182866425 BP Diastolic BP Location Tested BP Systolic BP Type 89 140 Fetus Heart Rate Present Fetus Movement Comments Flowsheet Date 12/14/2024 Martini Score Blood Edema Fundus Height Fundus Units Glucose Ketones Leukocytes Nitrite Labor Signs Protein Cervic Dilation Cervic Effacement Cervic Station neg trace Type Weight in lbs Pre/Post Dialysis Refused 269.470812705760 BP Diastolic BP Location Tested BP Systolic [...]
--- OUTSIDE RECORDS SUMMARY | 2024-12-15 16:31 | XMS_ITS | Referral Summary ---
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 Physical exam, annual 07/28/2023 Assessment & Plan (07/28/2023 9:20 PM DIRECTOR VACCINE): CBC, CMP, lipids ordered today. Patient up-to-date [...] Assessment & Plan (06/08/2023 9:24 PM CDT): [place] scale 15 in office. Order placed for [...] 03/30/2024 Assessment & Plan (07/28/2023 9:19 PM DIRECTOR VACCINE): TSH, vitamin B12, vitamin-D, HARRY, RF, CRP, ESR ordered today. Will follow lab results. Assessment & Plan (08/03/2019 10:28 AM DIRECTOR VACCINE): She will have blood work today. We [...] (12+ YRS) 02/28/2021 Tdap 04/02/2012 Varicella 04/02/2012,04/21/2000 Social History Tobacco Use Types Packs/Day Years [...] on file Legal Sex Female 10:43 PM DIRECTOR VACCINE Gender Identity Female 06/03/2023 6:40 AM CDT Sexual Orientation Straight 06/03/2023 6: 40 AM CDT Last Filed Vital Signs Vital Sign Reading [...] 03/30/2024 12:59 PM CDT Plan of Treatment Not on file Procedures Procedure Name Priority Date/Time Associated Diagnosis Comments PAP SMEAR Routine 12/04/2021 from Last 3 Months or Most Recently Relevant to Health Maintenance Results * PAP SMEAR (12/04/2021) SCRIBED Pap test normal Historical Provider HEALTH MAINTENANCE Final Result from Last 3 Months or Most Recently Relevant to Health Maintenance Insurance [facility] H[facility]/PPO Address: [address] [address] [place] [address] [facility] [employer] H[employer]/PPO Address: [address] [place], [place] [id number] Care Teams Electroplating Sales Representative Relationship Specialty Start Date End Date Ivy Salas NP [address] [address] [address] [address] PCP - General Medical Office Technology Instructor 07/14/22
--- OUTSIDE RECORDS SUMMARY | 2024-12-15 16:31 | XMS_ITS | Continuity of Care Document ---
Author Organization [facility] [place] Address [address] [place] [address] [place] [address] Care Team Providers Care Environmental Technician Name Role Phone KAMLESH ORNELAS Primary Care Provider [phone] Assessment No assessment recorded. Plan of Treatment Reminders Order Date Submit Date Provider Last Modified By Organization Details Last Modified Time Details Appointments INDUCTION 2024 04:00P M Lori Hogan CNM Not available Not available Not available Lab None recorded. Referral None recorded. Procedures None recorded. Surgeries None recorded. Imaging non-stres s test 2024 025 [email or web address], [address], [place], [address], 12/15/2024 13:13:18 Medication Orders None recorded. Patient TargetsNo targets recorded. Patient InstructionsNo instructions recorded. Reason for Referral None Reported. Results Created Date Observation Date Name Description Value Unit Range Abnormal Flag Note LastModifiedBy Organization Detail LastModifiedTime 07/27/20 24 07/27/2024 US, obste tric, 2nd or 3rd trime ster No observ ation record ed. [email or web address] [address], [place], [address], 07/27/2024 17:45:29 07/27/20 24 07/27/2024 US, obste tric, 2nd or 3rd trime ster No observ ation record ed. [email or web address] [address], [place], [address], 07/27/2024 21:33:42 10/12/19 25 10/12/2024 US, obste tric, follo w-up No observ ation record ed. [email or web address] [address], [place], [address], 10/12/2024 13:51:30 10/12/19 25 10/12/2024 US, obste tric, follo w-up No observ ation record ed. [email or web address] [address], [place], [address], 10/13/2024 18:35:26 11/11/19 25 11/11/2024 US, obste tric, follo w-up No observ ation record ed. [email or web address] [address], [place], [address], 11/15/2024 23:11:50 11/11/19 25 11/11/2024 US, obste tric, follo w-up No observ ation record ed. [email or web address] [address], [place], [address], 11/11/2024 17:56:31 11/24/19 25 11/23/2024 US, obste tric, bioph ysica l profi le + non-s tress test No observ ation record ed. [email or web address] [address] [address], [place], [address], 11/23/2024 18:47:09 11/24/19 25 11/23/2024 US, obste tric, bioph ysica l profi le + non-s tress test No observ ation record ed. [email or web address] [address], [place], [address], 11/23/2024 20:42:37 11/25/19 25 11/24/2024 non-s tress test No observ ation record ed. [address], [place], [address], 11/24/2024 09:51:27 12/01/19 25 11/30/2024 non-s tress test No observ ation record ed. [email or web address] [address], [place], [address], 11/30/2024 17:15:41 12/01/19 25 11/30/2024 US, obste tric, bioph ysica l profi le + non-s tress test No observ ation record ed. [email or web address] [address], [place], [address], 11/30/2024 17:58:51 12/01/19 25 11/30/2024 US, obste tric, bioph ysica l profi le + non-s tress test No observ ation record ed. [email or web address] [address], [place], [address], 11/30/2024 18:36:20 12/03/19 US, obste tric, bioph ysica l profi le + non-s tress test No observ ation record ed. [email or web address] [address], [place], [address], 12/02/2024 16:53:35 12/08/19 25 12/07/2024 US, obste tric, follo w-up No observ ation record ed. [email or web address] [address], [place], [address], 12/09/2024 16:58:31 12/08/19 25 12/08/2024 US, obste tric, follo w-up No observ ation record ed. [email or web address] [address] [address], [place], [address], 12/08/2024 13:56:01 12/08/19 25 12/08/2024 US, obste tric, bioph ysica l profi le + non-s tress test No observ ation record ed. [email or web address] [address] [address], [place], [address], 12/08/2024 13:56:13 12/08/19 25 12/07/2024 non-s tress test No observ ation record ed. [email or web address] [address], [place], [address], 12/07/2024 20:10:22 12/08/19 25 12/07/2024 non-s tress test No observ ation record ed. [email or web address] [address], [place], [address], 12/07/2024 20:12:09 12/15/19 25 12/14/2024 US, obste tric, bioph ysica l profi le + non-s tress test No observ ation record ed. [email or web address] [address], [place], [address], 12/14/2024 18:23:21 12/15/19 25 12/14/2024 US, obste tric, follo w-up No observ ation record ed. [email or web address] [address] [facility], [place], [address], 12/15/2024 16:09:35 12/15/19 25 12/14/2024 non-s tress test No observ ation record ed. [address], [place], [address], 12/14/2024 19:28:04 12/15/19 non-s tress test No observ ation record ed. [email or web address] [address], [place], [address], 12/14/2024 19:30:58 Result Notes None recorded. Problems Name Problem SNOMED Code Status Onset Date Resolution Date Notes Provider Name and Address Organization Details Recorded Time 86898053 Active 2023 Isabella West null, [facility] 4 17:02:18 Obesity 734289263 Active BMI 39- plan testing start Troy Hogan CNM [address], [place], [address], [facility] 4 17:11:03 Cystic fibrosis 103438963 Active + Carrier - Low risk to fetus Sheila Alex [facility], [facility] 4 16:57:53 Cystic fibrosis 663465716 Active + Carrier - Low risk to fetus Sheila Alex [facility], [facility] 4 16:57:53 Problem Notes None recorded. Procedures Surgical History Date Name Laterality Status Provider Name and Address Organization Details Recorded Time 05/11/20 24 Date of Last Pap Smear completed Isabella West [facility] 06/10/2024 14:48:49 12/17/19 24 IUD Removal completed NELY Cadet [address], [place], [address], [facility] 12/17/2023 17:32:17 12/12/19 22 IUD Insertion completed Lori Hogan CNM [address], [place], [address], [facility] 12/11/2021 18:48:33 09/21/19 17 extraction of wisdom tooth completed Isabella West [facility] 12/09/2021 14:25:26 Imaging Results Imaging Date Name Status LastModified by Organiz ation Details LastModified Time 12/14/2024 non-stress test completed [email or web address] [address], [place], [address], 12/14/2024 19:28:04 Procedure Notes None recorded. Medical Equipment None [...] INSERTED 2 AND NEEDS REMOVED 9 LOT [id number] EXP 12/2023 Not Available Not Available Not [...] Address Organization Details Last Updated DateTime 5 686498. 89563 g 44.8 kg/m2 165.1 cm 165.1 cm 44.8 kg/m2 577206. 35 g 140 mm[Hg] 89 mm[Hg] 140 mm[Hg] 89 mm[Hg] Isabella West [facility] 19:22:36 Social History Question Answer Notes LastModified by Organizat ion Details LastModified Time Tobacco Smoking Status Never Smoker Deepak schwartz, [facility] 01/20/2022 17:23:59 Do You Have An Advance Directive? No [email or web address] Information n ot available 12/04/2021 What Is Your Level Of Alcohol Consumption? None Information not available 05/11/2024 If You Are , What Was Your Level Of Alcohol Consumption Prior To ? Occasional [email or web address] Information not available 05/11/2024 How Many Years Have You Consumed Alcohol? 1 Information not available 12/17/2023 Are You Blind Or Do You Have Difficulty Seeing? No [email or web address] Information n ot available 12/04/2021 What Is Your Level Of Caffeine Consumption? Moderate Information not available 12/17/2023 How Much Tobacco Do You Chew? None [email or web address] Information not available 12/04/2021 In The 14 Days Before Symptom Onset, Have You Had Close Contact With A Laboratory-confirm ed COVID-19 While That Case Was Ill? No [email or web address] Information n ot available 12/04/2021 In The 14 Days Before Symptom Onset, Have You Had Close Contact With A Person Who Is Under Investigation For COVID-19 While That Person Was Ill? No [email or web address] Information not available 12/04/2021 Have You Been To An Area Known To Be High Risk For COVID-19? No [email or web address] Information not available 12/04/2021 Are You Deaf Or Do You Have Serious Difficulty Hearing? No [email or web address] Information not available 12/04/2021 What Type Of Diet Are You Following? REGULAR [email or web address] Information n ot available 12/04/2021 What Is The Highest Grade Or Level Of School You Have Completed Or The Highest Degree You Have Received? 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 No Information not available 12/17/2023 Have You Ever Been Counseled For Unhealthy Alcohol Use? No [email or web address] Information not available 01/20/2022 Do You Use Protection During Sex? No [email or web address] Information not available 12/04/2021 Do You Use Your Seat Belt Or Car Seat Routinely? Yes [email or web address] Information not available 12/04/2021 Do You Have Smoke And Carbon Monoxide Detectors In Your Home? Yes [email or web address] Information not available 12/04/2021 How Much Tobacco Do You Smoke? No [email or web address] Information not available 12/04/2021 Do You Feel Stressed (tense, Restless, Nervous, Or Anxious, Or Unable To Sleep At Night)? [id number] Information not available 12/04/2021 Do You Use Any Illicit Or Recreational Drugs? No Information not available 12/04/2021 Do You Use Sunscreen Routinely? Yes [email or web address] Information not available 12/04/2021 Has Tobacco Cessation Counseling Been Provided? No [email or web address] Information not available 01/20/2022 Have You Used IV Drugs? No [email or web address] Information not available 12/04/2021 Do You Or Have You Ever Used Any Other Forms Of Tobacco Or Nicotine? No Information not available 01/20/2022 Sex: Unknown Functional Status Question Answer Note LastModified by Organizat ion Details LastModified Time Do you have difficulty walking or climbing stairs? No Information not available 01/20/2022 Are you able to walk? YESWOREST [email or web address] Information not available 12/04/2021 Are you able [...] Details LastModified Time Maternal Grandmother Hypertensive disorder [email or web address] Not available 12/04 18:21:26 Maternal Grandmother Diabetes mellitus [email or web address] Not available 12/04 18:21:26 Maternal Grandmother Malignant tumor of ovary 20 [email or web address] Not available 2023 16:41:30 Maternal Grandmother Malignant tumor of ovary Not available 2023 16:53:09 Mother Hypertensive disorder [email or web address] Not available 12/04 18:21:26 Brother Asthma Not availabl e 12/04/2021 18:21:26 Maternal Aunt Hypertensive disorder [email or web address] Not available 2021 17:56:25 Maternal Uncle Hypertensive disorder [email or web address] Not available 2021 17:56:26 Unspecified Relation Diabetes mellitus MATERN AL GREAT GRANDM A [email or web address] Not available 12/11/2021 17:56:26 Paternal Uncle Malignant tumor of pancreas 40 [email or web address] Not available 2024 14:23:32 Medical History Condition Response Allergies (Food, seasonal, environmental ) Y Other N Drug/Latex Allergies/Reactions N Breast Cancer N Blood Transfusion N Lung Disease N Dermatologic Disorders N Defects or Inherited Disease N Breast Problem N Gestational Diabetes N Hematologic disorders N Anesthesia Complications N History of STI N Deep Vein Thrombosis N Polycystic ovary syndrome N Anxiety Disorder N Autoimmune disease N Arthritis N Polyps N Infertility N History of abnormal pap N Acid Reflux (GERD) N Cancer N [...] SNOMED-CT Code Diagnosis ICD10 Code Diagnosis Note [id number] [facility] [address],[place] [address] 11/16/2024 17:28:33 11/17/2024 04:35:14 screening 671041684 Z36.85 Gestation period, 35 weeks 05201859 Z3A.35 [id number] Naila Juarez [facility] [address],[place] [address] 11/23/2024 15:54:02 11/23/2024 16:33:33 Maternal obesity complicating , childbirth and the puerperium, antepartum 6783980306 07 O99.213 Z3A.36 [id number] Loren Rivera [place] [address],[place] [address] 11/23/2024 15:54:37 11/24/2024 11:16:36 Maternal obesity complicating , childbirth and the puerperium, antepartum 4831763243 07 O99.213 Z3A.36 [id number] Lori Hogan CNM [address],[place] [address] 11/23/2024 15:55:14 11/23/2024 17:36:49 Gestation period, 36 weeks 18992782 Z3A.36 [id number] Keira Davies [facility] [address],[place] [address] 11/30/2024 16:24:27 11/30/2024 17:19:10 42099989 Z33.1 Maternal o besity complicating , childbirth and the puerperium, antepartum 5248434346 07 O99.210 [id number] [facility] [address],[place] [address] 11/30/2024 16:24:49 11/30/2024 17:26:02 Maternal obesity complicating , childbirth and the puerperium, antepartum 5779649246 07 O99.213 Z3A.37 [id number] Lori Hogan [facility] [address],[place] [address] 11/30/2024 16:25:23 11/30/2024 17:48:29 Gestation period, 37 weeks 44871056 Z3A.37 [id number] [facility] [address],[place] [address] 12/07/2024 17:04:19 12/08/2024 10:03:10 Maternal obesity complicating , childbirth and the puerperium, antepartum 7338942012 07 O99.213 Z86.16 [id number] Isabella West [place] [address],[place] [address] 12/07/2024 17:04:34 12/08/2024 08:27:45 Maternal obesity complicating , childbirth and the puerperium, antepartum 9274410185 07 O99.210 [id number] Lori Hogan [facility] [address],[place] [address] 12/07/2024 17:05:53 12/08/2024 03:57:01 Gestation period, 38 weeks 64612857 Z3A.38 [id number] [facility] [address],[place] [address] 12/14/2024 16:33:00 12/14/2024 17:02:46 Maternal obesity complicating , childbirth and the puerperium, antepartum 3274930820 07 O99.213 Z3A.39 [id number] Isabella Ornelastz [place] [address] [address] 12/14/2024 16:33:24 12/15/2024 13:13:18 Maternal obesity complicating , childbirth and the puerperium, antepartum 5073040841 07 O99.210 [id number] Lori Hogan [facility] [address] [address] 12/14/2024 16:33:36 12/15/2024 03:27:29 Gestation period, 39 weeks 29352393 Z3A.39 Health Concerns Section Related Observation LastModified by Organization Detai ls LastModified Time None Recorded Concern Status LastModified by Organization Details LastModified Time None Recorded Payers Encounter Date Sequence Insurance Name Policy Number Policy Wilson Covered Member ID Wilson Member ID Guarantor Name 12/14/2024 2 [facility] [id number] Faridehgill Ortega [id number] Mary Nahun 12/14/2024 1 [facility] [id number] Mary L Nahun [id number] Mary Nahun OBGyn Episode Ob Episode Information Episode Created Date Number of Fetuses Patient Bloodtype Patient rh Status Prepregnancy Weight lbs Domestic Partner Domestic Partner Phone Father Name Business Development Associate Status 06/10/20 24 1 A Positive 236 OPEN Fetus Data First Name Last Name Admitted to NICU Weight (g) Sex Living Outcome Pediatric Complications Fetus ID Race Codes Race Delivery Type [id number] Problems Problem Notes Problem Name Start Date End Date Resolution Snomed Code Not e Cystic fibrosis 318630961 + Ca rrier - Low risk to fetus Obesity 418052602 BMI 39- pl an testingstart bASA Bimal [...] Weight in lbs Pre/Post Dialysis Refused Weight 237.0846613975 BP Diastolic BP Location Tested BP Systolic [...] Type Weight in lbs Pre/Post Dialysis Refused 236.184842209040 BP Diastolic BP Location Tested BP Systolic [...] Type Weight in lbs Pre/Post Dialysis Refused 239.249736022504 BP Diastolic BP Location Tested BP Systolic [...] Type Weight in lbs Pre/Post Dialysis Refused 244.303725066429 BP Diastolic BP Location Tested BP Systolic [...] Type Weight in lbs Pre/Post Dialysis Refused 250.287086851874 BP Diastolic BP Location Tested BP Systolic [...] Type Weight in lbs Pre/Post Dialysis Refused 252.390454053316 BP Diastolic BP Location Tested BP Systolic BP Type 86 133 Fetus Heart Rate Present Fetus Movement A Yes Comments Patient is having back and h ip pain, nausea and vomiting. will get maternity support belt, +FM, efw 45%, precautions and education, looking for a ekg technician, signed up for class f/u 2 weeks Flowsheet Date 10/28/2024 Martini Score Blood Edema Fundus Height Fundus Units Glucose Ketones Leukocytes Nitrite Labor Signs Protein Cervic Dilation Cervic Effacement Cervic Station neg none 35 cm Type Weight in lbs Pre/Post Dialysis Refused Weight 258.319343516132 BP Diastolic BP Location Tested BP Systolic [...] Type Weight in lbs Pre/Post Dialysis Refused 259.880831887302 BP Diastolic BP Location Tested BP Systolic [...] Weight in lbs Pre/Post Dialysis Refused Weight 263.126871326892 BP Diastolic BP Location Tested BP Systolic [...] Type Weight in lbs Pre/Post Dialysis Refused 262.423275898478 BP Diastolic BP Location Tested BP Systolic [...] Weight in lbs Pre/Post Dialysis Refused Weight 269.818596806760 BP Diastolic BP Location Tested BP Systolic [...] Type Weight in lbs Pre/Post Dialysis Refused 269.153641535571 BP Diastolic BP Location Tested BP Systolic [...] Weight in lbs Pre/Post Dialysis Refused Weight 270.175142842963 BP Diastolic BP Location Tested BP Systolic [...] Type Weight in lbs Pre/Post Dialysis Refused 270.66308603645 BP Diastolic BP Location Tested BP Systolic [...] Weight in lbs Pre/Post Dialysis Refused Weight 269.597517299057 BP Diastolic BP Location Tested BP Systolic BP Type 89 140 Fetus Heart Rate Present Fetus Movement Comments Flowsheet Date 12/14/2024 Martini Score Blood Edema Fundus Height Fundus Units Glucose Ketones Leukocytes Nitrite Labor Signs Protein Cervic Dilation Cervic Effacement Cervic Station neg trace Type Weight in lbs Pre/Post Dialysis Refused 269.789627746237 BP Diastolic BP Location Tested BP Systolic [...]
[2024-12-15 17:09] LABS: Basophils Percent Auto 0.4 % (0.2-1.2); Eosinophils Absolute Auto 0.2 K/mm3 (0-0.3); Eosinophils Percent Auto 1.5 % (0-4.4); Hematocrit 36.9 % (37.0-47.0); Hemoglobin 12.5 g/dL (12.0-15.0); Immature Granulocyte Absolute 0.08 K/mm3 (0.00-0.031); Immature Granulocyte Percent A 0.8 % (0-0.5); Lymphocytes Absolute Auto 1.65 K/mm3 (0.9-3.2); Lymphocytes Percent Auto 15.7 % (18.3-44.2); Mean Corpuscular HGB Conc 33.9 g/dl (32-36); Mean Corpuscular Hemoglobin 29.3 pg (26-34); Mean Corpuscular Volume 86.4 fl (80-100); Mean Platelet Volume 10.8 fl (7.4-10.4); Monocytes Absolute Auto 0.5 K/mm3 (0.1-0.6); Monocytes Percent Auto 4.6 % (2.6-8.5); Neutrophils Absolute Auto 8.1 K/mm3 (1.3-6.7); Platelet Count Result 216 k/mm3 (150-375); Red Blood Count 4.27 M/mm3 (4.2-5.4); Red Cell Distribution Width 14.6 % (11.5-14.5); White Blood Count 10.5 K/mm3 (4.5-10.0)
--- NOTE | 2024-12-15 17:10 | LDADM ---
This patient, Mary Garnica, was admitted to Labor/Delivery/Recovery 108 on 12/15/24 at 16:02. Plans for labor, pain management and were discussed with patient. Patient/family oriented to hospital policies and general routines including ID bracelet, bed and alarms, visiting hours, pain management, procedures, bathroom and other care routines, personal items, smoking policy, room service/diet and guest tray routines, security routines, and visiting hours. Patient/Family are encouraged to report perceived risks to care and to ask questions if they do not understand what they are told or what they should do. See OBIX for further documentation.
--- NOTE | 2024-12-15 17:42 | WPDANESEPP ---
Anes - Eval Pre Procedure Procedure: labor epidural Date/Time: 12/15/24 17:42 Surgeon: ary Preop Diagnosis: pain during labor Pre Op Diagnosis: Induction of Labor Patient Data Age: 24 Gender: F Height: 1.68 m Weight: 123 kg Last Vital Signs O2 Del Method Room Air 12/15/24 17:08 Allergies Allergy/AdvReac Type Severity Reaction Status Date / Time No Known Allergies Allergy Verified 12/07/24 15:45 Home Medications ?Medication ?Instructions ?Recorded ?Confirmed ?Type aspirin 81 mg tablet 81 mg PO DAILY 12/07/24 12/07/24 History cetirizine 10 mg tablet (24Hour 10 mg PO DAILY PRN allergy symptoms 12/07/24 12/07/24 History Allergy) enjzunpx-czo-Ep-FA 1 mg tablet PO 12/07/24 History tablet Laboratory Tests 12/15/24 17:03 WBC 10.5 H K/mm3 (4.5-10.0) RBC 4.27 M/mm3 (4.2-5.4) Hgb 12.5 g/dL (12.0-15.0) Hct 36.9 L % (37.0-47.0) MCV 86.4 fl (80-100) MCH 29.3 pg (26-34) MCHC 33.9 g/dl (32-36) RDW 14.6 H % (11.5-14.5) Plt Count 216 k/mm3 (150-375) MPV 10.8 H fl (7.4-10.4) Immature Gran % (Auto) 0.8 H % (0-0.5) Neut % (Auto) 77.0 H % (45.5-73.1) Lymph % (Auto) 15.7 L % (18.3-44.2) [place] % (Auto) 4.6 % (2.6-8.5) Eos % (Auto) 1.5 % (0-4.4) Baso % (Auto) 0.4 % (0.2-1.2) Lymph # (Auto) 1.65 K/mm3 (0.9-3.2) [place] # (Auto) 0.5 K/mm3 (0.1-0.6) Eos # (Auto) 0.2 K/mm3 (0-0.3) Baso # (Auto) 0.0 K/mm3 (0.0-0.1) Abs Immat Gran (auto) 0.08 H K/mm3 (0.00-0.031) Absolute Neuts (auto) 8.1 H K/mm3 (1.3-6.7) Absolute Nucleated RBC 0.000 K/mm3 (0.0-0.012) Nucleated RBC % 0.0 % (0.0-0.2) HIV 1&2 Ab/P24 Ag 4thGn Pending Blood Type A Positive Antibody Screen Pending Patient hx anesthesia problems: none Family hx anesthesia problems: none Results Review: All pre-operative results and documents have been reviewed as part of the pre-operative evaluation. [facility] Past Medical History Medical History (Updated 12/15/24 @ 17:43 by Jelly Scott CRNA) IUP (intrauterine ), incidental Morbid obesity with BMI of 40.0-44.9, adult Family History Family History (Updated 12/07/24 @ 15:35 by Antonella Aburto RN) Mother Hypertension Ovarian cancer Grandparent Hypertension Cervical cancer Social History Social History Smoking status: Never smoker Substance use: never Do You Feel Safe in your Home?: Yes Lack of Transportation: No Lack of Food: Never True Current Housing: I Have Housing Concerned About Future Housing: No Difficulty Paying Gas/Electric Bills: No Difficulty Paying for Meds: No Currently Unemployed: No Education: Bachelor's Degree Difficulty w/ Childcare or Family Care: No Spiritual care concerns: No Exam Day of Procedure 12/15/24 17:42
[2024-12-15 17:49] LABS: Syphilis IgG/IgM Antibody Negative (Negative)
[2024-12-15 17:59] LABS: HIV 1/2 Ab P24 Ag Result Negative (Negative)
[2024-12-15] MEDS: miSOPROStol 25 MCG TABLET 50 MCG BUCCAL ×2 (18:02→21:57)
[2024-12-15 19:35] LABS: Alanine Aminotransferase 31 U/L (6-35); Albumin Level 3.7 g/dL (3.5-5.1); Alkaline Phosphatase 166 U/L (38-126); Anion Gap 10 mmol/L (4-12); Aspartate Amino Transferase 29 U/L (14-36); Bilirubin,Total 0.2 mg/dL (0.2-1.3); Blood Urea Nitrogen 10 mg/dL (7-17); Calcium 10.1 mg/dL (8.4-10.2); Carbon Dioxide 19 mmol/L (22-30); Chloride 105 mmol/L (98-107); Estimated CRCL calculation 112 ml/min; Estimated Glomerular Filt Rate > 60; Glucose 116 mg/dL (65-110); Potassium 3.7 mmol/L (3.4-5.0); Sodium 134 mmol/L (137-145); Uric Acid 7.6 mg/dL (2.5-7.5)
[2024-12-15 19:51] LABS: Add Urine Microscopic? YES; Appearance Urine Cloudy (Clear); Bacteria Urine 2+ /hpf; Bilirubin Urine Negative (Negative); Blood Urine Negative (Negative); Color Urine Yellow (Yellow); Glucose Urine UA Negative (Negative); Ketones Urine Negative (Negative); Leukocyte Esterase Ur 2+ LEU/UL (Negative); Nitrate Urine Negative (Negative); Non Pathogenic Casts 0-2; Protein Urine Trace mg/dL (Negative); RBC Urine 0-2 /hpf (0-2); Specific Grav Ur 1.018 (1.001-1.035); Squamous Epithelial Cell Urine Moderate /hpf (Few); Urobilinogen Urine 0.2 mg/dL (<2.0); WBC Urine 21-50 /hpf (0-3); pH Urine 6.5 (5.0-9.0)
[2024-12-16] VITALS (343 sets, daily range): BP systolic 86–160; BP diastolic 13–146; PULSE 35–211; RESP 12–20; TEMP 36.2–37.6; O2SAT 90–100
[2024-12-16] MEDS: LACTATED RINGERS 1,000 ML 125 ML IV CONT ×2 (02:23→03:28)
[2024-12-16] MEDS: OXYTOCIN 30 UNITS/NS 500 ML 30 UNITS/500 ML BAG IV CONT (03:30)
--- NOTE | 2024-12-16 07:25 | WPDOBADMIT ---
Obstetrics - Admit Note Admission Note: record reviewed. No pertinent additions to the history and/or any subsequent changes in the physical findings that are not consistent with the expected course of the were found. Additions to the history and/or subsequent changes in the physical findings follow. IOL, SVE 1.5/80/-2 AROM moderate amount of clear, odorless fluid, anticipate vaginal delivery
[2024-12-16] MEDS: METHYLERGONOVINE MALEATE 0.2 MG/ML VIAL IM (19:55)
[2024-12-16] MEDS: TRANEXAMIC ACID 1,000MG/ISO100 1,000 MG/100 ML BAG 600 MG IVPB (20:00)
[2024-12-16] MEDS: ceFAZolin 2 GM/D5W 50 ML 2 GM/50 ML BAG IVPB (20:07)
[2024-12-16] MEDS: ONDANSETRON INJ 4 MG/2 ML VIAL IV PUSH (20:12)
--- NOTE | 2024-12-16 20:16 | PM.OBPRVD ---
OB - Vaginal Delivery Note Procedure Delivery date: 12/16/24 Induction method: AROM, Per Misoprostol Protocol and Per Pitocin Protocol Delivery monitor: External FHT and Internal Uterine Route of delivery: Episiotomy description: None Laceration Description: Vaginal and Labial (right) Specimen: No Quantitative Blood Loss (ml): 1,600 Anesthesia type: Epidural Disposition: Floor Complications: Other complications Narrative: after delivery of placenta, bleeding increased, fundal massage was not helping and methergine, and TXA given, IV had to be reinserted, deisy placed and hooked up to suction, catherine catheter placed, VSS, plan 2 units of RBC.bedside US confirmed deisy placement Baby Date of : 12/16/24 Time of : 19:45 Gestational Age by Date: 40 Infant gender: Female Weight (pounds): 8 Weight (ounces): 7 presentation: vertex position: Left Occiput Anterior Placenta delivery description: Spontaneous and Uterine Exploration Cord Vessel Description: 3 Vessels score one minute: 8 score five minutes: 9
[2024-12-16 20:46] LABS: Hematocrit 37.8 % (37.0-47.0); Hemoglobin 11.9 g/dL (12.0-15.0); Mean Corpuscular HGB Conc 31.5 g/dl (32-36); Mean Corpuscular Volume 92.2 fl (80-100); Mean Platelet Volume 10.9 fl (7.4-10.4); Platelet Count Result 208 k/mm3 (150-375); Red Cell Distribution Width 14.6 % (11.5-14.5); White Blood Count 14.7 K/mm3 (4.5-10.0)
[2024-12-16 20:48] LABS: Magnesium 1.3 mg/dL (1.6-2.3)
[2024-12-16 21:03] LABS: Partial Thromboplastin Time 24.8 Seconds (22.3-36.8); Prothrombin Time 13.3 Seconds (11.1-14.7)
[2024-12-16 21:04] LABS: Fibrinogen 599 mg/dl (215-510)
--- NOTE | 2024-12-16 21:18 | PC.NURSE ---
2039- CNM called in for update. RN reported pts current blood loss, administration of 1st bag of blood. Orders received for H&H to be drawn 4 hours post infusion of first bag of blood and to cancel 2nd bag of blood. RN reported that OB Hemorrhage labs had not yet resulted. RN to call back with lab values. 2110- RN called CNM. CNM notified of updated QBL as well as results of OB Hemorrhage labs. No new orders received.
[2024-12-16] MEDS: IBUPROFEN 600 MG TABLET PO (21:21)
[2024-12-16] MEDS: OXYTOCIN 30 UNITS/NS 500 ML 30 UNITS/500 ML BAG 125 UNITS IV CONT (21:40)
[2024-12-17] VITALS (33 sets, daily range): BP systolic 97–139; BP diastolic 62–97; PULSE 83–116; RESP 18–20; TEMP 36.3–37.1; O2SAT 96–100
[2024-12-17 00:48] LABS: Hematocrit 31.4 % (37.0-47.0); Hemoglobin 10.3 g/dL (12.0-15.0); Mean Corpuscular HGB Conc 32.8 g/dl (32-36); Mean Corpuscular Hemoglobin 28.9 pg (26-34); Mean Platelet Volume 10.8 fl (7.4-10.4); Platelet Count Result 168 k/mm3 (150-375); Red Blood Count 3.57 M/mm3 (4.2-5.4); Red Cell Distribution Width 14.4 % (11.5-14.5); White Blood Count 18.1 K/mm3 (4.5-10.0)
[2024-12-17] MEDS: WITCH HAZEL 40 PADS 1 PAD TOPICAL (01:16)
[2024-12-17] MEDS: BENZOCAINE 20% AER SPR (*SP) 56 GM CAN 1 SPRAY TOPICAL (01:16)
[2024-12-17 01:18] LABS: Band Neutrophils Percent 4 % (0-6); Monocytes Absolute Manual 0.18 K/mm3 (0.1-0.90); Monocytes Percent Manual 1 % (3-9); Neutrophils Absolute Manual 17.01 K/mm3 (1.7-7.2); Neutrophils Percent Manual 90 % (46-73); Total Cells Counted 100
[2024-12-17 01:19] LABS: Anisocytosis 1+; Platelet Estimate Adequate (Adequate); Schistocytes None Seen
--- NOTE | 2024-12-17 01:54 | OBPPTRN ---
Patient transferred to post room #279 via w/c. Support person present. Oriented to unit, room, information board, rooming in, admission packet and security measures. Patient verbalizes understanding.
[2024-12-17] MEDS: ACETAMINOPHEN 325 MG TABLET 650 MG PO ×2 (04:30→17:02)
[2024-12-17] MEDS: MULTIVIT/MIN/PREN/FOL AC/IRON TABLET 1 TAB PO (08:12)
[2024-12-17] MEDS: POLYSACCHARIDE IRON COMPLEX 150 MG CAPSULE PO ×2 (08:12→17:03)
[2024-12-17] MEDS: DOCUSATE SODIUM 100 MG CAPSULE PO ×2 (08:12→17:03)
[2024-12-17 08:49] LABS: Hematocrit 30.4 % (37.0-47.0); Hemoglobin 9.8 g/dL (12.0-15.0); Mean Corpuscular HGB Conc 32.2 g/dl (32-36); Mean Corpuscular Hemoglobin 28.5 pg (26-34); Mean Corpuscular Volume 88.4 fl (80-100); Mean Platelet Volume 10.5 fl (7.4-10.4); Platelet Count Result 163 k/mm3 (150-375); Red Blood Count 3.44 M/mm3 (4.2-5.4); Red Cell Distribution Width 14.6 % (11.5-14.5); White Blood Count 15.9 K/mm3 (4.5-10.0)
--- NOTE | 2024-12-17 09:36 | P.PNOB_ITS ---
OB - PN: Subj Subjective Date/time seen: 12/17/24 09:36 Interval history: PPD#1 s/p complicated by 2L PPH Elke in place, minimal bleeding into canister since placement Patient denies pain or symptomatic anemia Catherine catheter in place No nausea or vomiting OB - PN: Obj Data Labs 12/17/24 08:43 12/15/24 17:02 Labs: Laboratory Results - last 24 hr 12/15/24 12/16/24 12/16/24 17:03 20:00 20:48 WBC 14.7 H RBC 4.10 L Hgb 11.9 L Hct 37.8 MCV 92.2 D MCH 29.0 MCHC 31.5 L RDW 14.6 H Plt Count 208 MPV 10.9 H Immature Gran % (Auto) Neut % (Auto) Lymph % (Auto) [place] % (Auto) Eos % (Auto) Baso % (Auto) Lymph # (Auto) [place] # (Auto) Eos # (Auto) Baso # (Auto) Abs Immat Gran (auto) Absolute Neuts (auto) Absolute Nucleated RBC Total Counted Neutrophils % (Manual) Band Neutrophils % Lymphocytes % (Manual) Monocytes % (Manual) Nucleated RBC % Abs Neuts (Manual) Abs Lymphs (Manual) Abs Monocytes (Manual) Platelet Estimate Anisocytosis Schistocytes PT 13.3 INR 1.0 APTT 24.8 Fibrinogen 599 H D-Dimer 3.70 H Magnesium 1.3 L Blood Type Cancelled Rho(D) Type Cancelled Antibody Screen Cancelled Crossmatch See Detail 12/17/24 12/17/24 12/17/24 00:35 00:35 00:35 WBC 18.1 H RBC 3.57 L Hgb Cancelled 10.3 L Hct Cancelled 31.4 L MCV 88.0 MCH 28.9 MCHC 32.8 RDW 14.4 Plt Count 168 MPV 10.8 H Immature Gran % (Auto) Not Reportable Neut % (Auto) Not Reportable Lymph % (Auto) Not Reportable [place] % (Auto) Not Reportable Eos % (Auto) Not Reportable Baso % (Auto) Not Reportable Lymph # (Auto) Not Reportable [place] # (Auto) Not Reportable Eos # (Auto) Not Reportable Baso # (Auto) Not Reportable Abs Immat Gran (auto) Not Reportable Absolute Neuts (auto) Not Reportable Absolute Nucleated RBC Not Reportable Total Counted 100 Neutrophils % (Manual) 90 H Band Neutrophils % 4 Lymphocytes % (Manual) 5.0 L Monocytes % (Manual) 1 L Nucleated RBC % Not Reportable Abs Neuts (Manual) 17.01 H Abs Lymphs (Manual) 0.90 L Abs Monocytes (Manual) 0.18 Platelet Estimate Adequate Anisocytosis 1+ Schistocytes None seen PT INR APTT Fibrinogen D-Dimer Magnesium Blood Type Rho(D) Type Antibody Screen Crossmatch 12/17/24 08:43 WBC 15.9 H RBC 3.44 L Hgb 9.8 L Hct 30.4 L MCV 88.4 MCH 28.5 MCHC 32.2 RDW 14.6 H Plt Count 163 MPV 10.5 H Immature Gran % (Auto) Neut % (Auto) Lymph % (Auto) [place] % (Auto) Eos % (Auto) Baso % (Auto) Lymph # (Auto) [place] # (Auto) Eos # (Auto) Baso # (Auto) Abs Immat Gran (auto) Absolute Neuts (auto) Absolute Nucleated RBC Total Counted Neutrophils % (Manual) Band Neutrophils % Lymphocytes % (Manual) Monocytes % (Manual) Nucleated RBC % Abs Neuts (Manual) Abs Lymphs (Manual) Abs Monocytes (Manual) Platelet Estimate Anisocytosis Schistocytes PT INR APTT Fibrinogen D-Dimer Magnesium Blood Type Rho(D) Type Antibody Screen Crossmatch OB - PN A/P Assessment and Plan (1) (spontaneous vaginal delivery): Code(s): O80 - Encounter for full-term uncomplicated delivery Status: Acute (2) PPH ( hemorrhage): Code(s): O72.1 - Other immediate hemorrhage Status: Acute Assessment and Plan: - s/p 2L PPH - s/p TXA, ELKE in place with minimal in canister since placement - Hgb 11.9 > 10.3 > 9.8, s/p 1u pRBC - fibrinogen >500 - ELKE cervical balloon deflated, suction d/c'd - removed without issue, no continued bleeding - will remove catherine catheter - continue to monitor closely for bleeding Plan day: 1 Plan: routine care Time Spent With Patient Time: Total time spent is greater than 50% in coordination of care (as documented) at patient's floor/unit and/or counseling patient: Review of Systems 2 Review of Systems: All systems reviewed & are unremarkable except as noted in HPI and below Exam 2 Const: General: comfortable and no acute distress O rientation/consciousness: patient oriented x3 Resp: Effort & Inspection: normal respiratory effort GI: GI Palp: Yes Soft to palpation and No Tenderness to palpation present (GI) : Other: Elke in place, no active bleeding Suction d/c'd, cervical balloon deflated
[2024-12-17] MEDS: IBUPROFEN 600 MG TABLET PO ×2 (10:35→23:25)
--- NOTE | 2024-12-17 11:41 | PC.NURSE ---
Introductions were made, then consulted with patient to assess needs related to . Mother states that she would like to pump and feed - pump is at bedside. Mother states that she would like to wait until this afternoon to begin pumping. Educated patient on delayed pumping and protecting her milk supply. Mother states that she is hand expressing and giving infant what she is able to hand express. Mother will call this RN when she is ready to begin pumping.
--- NOTE | 2024-12-17 16:44 | WPDANLDPN2 ---
Anes-Prog Note L&D Date/Time: 12/17/24 16:44 Neuro status: Neuro function grossly intact. Cardiovascular status: normal Respiratory status: normal Airway patency: baseline Mental status: baseline Post-Op hydration status: normal Vital Signs: Last Vital Signs Temp 37.1 C 12/17/24 12:04 Pulse 115 H 12/17/24 12:04 Resp 20 12/17/24 12:04 BP 116/95 H 12/17/24 12:04 Pulse Ox 98 12/17/24 12:04 O2 Del Method Room Air 12/17/24 02:30 Pain score (VAS): 1 I/O: Intake & Output 12/17/24 12/17/24 12/17/24 07:59 15:59 23:59 Intake Total 400 300 Output Total 455 1000 Balance -55 -700 Post-procedural complaints: none Patient feedback: Patient satisfied with anesthetic care.
--- NOTE | 2024-12-17 17:11 | PC.NURSE ---
1600. Breast pump provided due to moms intent to feed is to pump and feed expressed breast milk. Instructions given on cleaning, care, usage, that there should be no pain, pumping schedule for milk production, collection, and storage of human milk. Patient was assessed for correct placement, flange size, to pump for comfort and nipple stretching/stimulation for adequate milk production every 3 hours (8 times in 24 hours) 1-2 times at night. Parents are encouraged to record the pumping schedule on the feeding sheet.?Mother voiced understanding of the education shared along with mom/baby guide and the pump measurement, flange fit handout for additional resource information. Reported to the Primary RN.
[2024-12-18] MEDS: MULTIVIT/MIN/PREN/FOL AC/IRON TABLET 1 TAB PO (07:58)
[2024-12-18] MEDS: DOCUSATE SODIUM 100 MG CAPSULE PO (07:58)
[2024-12-18] MEDS: POLYSACCHARIDE IRON COMPLEX 150 MG CAPSULE PO (07:58)
[2024-12-18 08:21] VITALS: BP 134/90; PULSE 92; RESP 18; TEMP 36.4; O2SAT 100
--- NOTE | 2024-12-18 08:29 | P.PNOB_ITS ---
OB - PN: Subj Subjective Date/time seen: 12/18/24 08:29 Interval history: PPD#2 s/p complicated by 2L PPH Elke removed yesterday morning, minimal bleeding since then Patient denies pain or symptomatic anemia Voiding without issue No nausea or vomiting Ready for discharge home today OB - PN: Obj Data Labs 12/17/24 08:43 12/15/24 17:02 Labs: Laboratory Results - last 24 hr 12/15/24 12/17/24 17:03 08:43 WBC 15.9 H RBC 3.44 L Hgb 9.8 L Hct 30.4 L MCV 88.4 MCH 28.5 MCHC 32.2 RDW 14.6 H Plt Count 163 MPV 10.5 H Crossmatch See Detail OB - PN A/P Assessment and Plan (1) (spontaneous vaginal delivery): Code(s): O80 - Encounter for full-term uncomplicated delivery Status: Acute (2) PPH ( hemorrhage): Code(s): O72.1 - Other immediate hemorrhage Status: Acute Assessment and Plan: - s/p 2L PPH - s/p TXA, ELKE (removed 12/17 AM) - Hgb 11.9 > 10.3 > 9.8, s/p 1u pRBC at time of hemorrhage - CBC pending this AM - fibrinogen >500 - bleeding minimal since ELKE removal - stable for discharge after CBC results Plan day: 2 Plan: routine care and discharge home Time Spent With Patient Time: Total time spent is greater than 50% in coordination of care (as documented) at patient's floor/unit and/or counseling patient: Review of Systems 2 Review of Systems: All systems reviewed & are unremarkable except as noted in HPI and below Exam 2 Const: General: comfortable and no acute distress O rientation/consciousness: patient oriented x3 Resp: Effort & Inspection: normal respiratory effort
--- NOTE | 2024-12-18 08:33 | PM.OBDSVD ---
DS: Admitting Diagnosis Discharge Date 12/18/24 Admitting Diagnosis elective induction of labor DS: Discharge Diagnosis Discharge Diagnosis (1) PPH ( hemorrhage): Code(s): O72.1 - Other immediate hemorrhage Status: Acute (2) (spontaneous vaginal delivery): Code(s): O80 - Encounter for full-term uncomplicated delivery Status: Acute OB - DS: Summary OB Procedures : None OB Procedures Intrapartum: Spontaneous Vag Delivery (with 2L PPH, LOC placed) OB Procedures: : Transfusion (1u pRBC) and Other Peripartum Data Laceration Description: Vaginal and Labial (right) Episiotomy description: None Time Spent with Patient Time attestation: Total time spent providing and/or coordinating discharge services: DS: Data Data Completed and Pending Labs on day of discharge: Labs from last 24 hours 12/18/24 12/17/24 12/15/24 08:17 08:43 17:03 WBC Pending 15.9 H RBC Pending 3.44 L Hgb Pending 9.8 L Hct Pending 30.4 L MCV Pending 88.4 MCH Pending 28.5 MCHC Pending 32.2 RDW Pending 14.6 H Plt Count Pending 163 MPV Pending 10.5 H Immature Gran % (Auto) Pending Neut % (Auto) Pending Lymph % (Auto) Pending [place] % (Auto) Pending Eos % (Auto) Pending Baso % (Auto) Pending Lymph # (Auto) Pending [place] # (Auto) Pending Eos # (Auto) Pending Baso # (Auto) Pending Abs Immat Gran (auto) Pending Absolute Neuts (auto) Pending Absolute Nucleated RBC Pending Nucleated RBC % Pending Crossmatch See Detail Discharge Plan Discharge Attending physician on discharge: Tyrell Rubio Discharging Clinician: Tyrell Rubio Patient Disposition: Home, Self-Care Activity: may shower, as tolerated and pelvic rest Diet: as tolerated Patient Instructions: Antibiotic Form Patient Language: Romansh Stand Alone Forms: General Discharge Information Follow-up/Referrals: Lori Hogan CNM [Certified Nurse Estate Attorney] - 4 Weeks Discharge Medications: New docusate sodium 100 mg Capsule 100 mg PO BID PRN (Reason: Constipation) Qty: 60 0RF ibuprofen 600 mg Tablet 600 mg PO Q6H PRN (Reason: Cramping) Qty: 30 0RF Continued [id number] 1 mg tablet PO cetirizine [24Hour Allergy] 10 mg tablet 10 mg PO DAILY PRN (Reason: allergy symptoms) Discontinued aspirin 81 mg tablet 81 mg PO DAILY Date of admission: 12/15/24 16:02 Primary Care Provider: Josue,Chantell Mazariegos Admitting Provider: Dorian Medina Attending physician on admission: Dorian Medina Condition: Stable
[2024-12-18 09:18] LABS: Basophils Percent Auto 0.3 % (0.2-1.2); Eosinophils Absolute Auto 0.2 K/mm3 (0-0.3); Eosinophils Percent Auto 1.4 % (0-4.4); Hematocrit 26.6 % (37.0-47.0); Hemoglobin 8.7 g/dL (12.0-15.0); Immature Granulocyte Absolute 0.13 K/mm3 (0.00-0.031); Immature Granulocyte Percent A 1.2 % (0-0.5); Lymphocytes Absolute Auto 1.99 K/mm3 (0.9-3.2); Lymphocytes Percent Auto 18.3 % (18.3-44.2); Mean Corpuscular HGB Conc 32.7 g/dl (32-36); Mean Corpuscular Hemoglobin 29.1 pg (26-34); Mean Platelet Volume 10.5 fl (7.4-10.4); Monocytes Absolute Auto 0.4 K/mm3 (0.1-0.6); Monocytes Percent Auto 3.6 % (2.6-8.5); Neutrophils Absolute Auto 8.2 K/mm3 (1.3-6.7); Neutrophils Percent Auto 75.2 % (45.5-73.1); Platelet Count Result 185 k/mm3 (150-375); Red Blood Count 2.99 M/mm3 (4.2-5.4); Red Cell Distribution Width 14.6 % (11.5-14.5); White Blood Count 10.9 K/mm3 (4.5-10.0)
[2024-12-20 10:24] VITALS: BP 129/88; PULSE 96; RESP 18; TEMP 36.6; O2SAT 100
== END 2024-12-18 16:00 | disposition home or self-care (01) | DRG 768 ==
LOC: ANHLDR 16:15 → ANHOB2 12-17 02:22
PROVIDERS: Advanced Practice Midwife; Admitting Provider Obstetrics & Gynecology; PCP Family Medicine; Visit Provider Obstetrics & Gynecology
DX: O77.0 Labor and delivery complicated by meconium in amniotic fluid (principal); Z37.0 Single live birth; O72.1 Other immediate postpartum hemorrhage; O70.0 First degree perineal laceration during delivery; O67.8 Other intrapartum hemorrhage; Z3A.40 40 weeks gestation of pregnancy
CPT/HCPCS: 36415; 36430; 80053; 81001; 83735; 84550; 85025; 85027; 85380; 85384; 85610; 85730; 86593; 86703; 86850; 86900; 86901; 86920; A9270; G0432; J0690; J2210; J2405; J2590; J2795; J7120; P9016